=== PATIENT | male | born 1960 | race Caucasian/White ===

== ENCOUNTER → 2016-11-09 | Outpatient (CLI) | payer MEDICARE ==
[~2016-11-09] MED LIST: HYDR-2762 PO; VILA40TA PO
--- NOTE | 2016-11-09 23:53 | PAIN ---
DATE OF SERVICE: 11/09/2016 DIAGNOSES: Lumbar degenerative disk disease, lumbar spondylosis and lumbar spinal stenosis. HISTORY OF PRESENT ILLNESS: The patient is a 55-year-old male who returns for followup status post medication management with hydrocodone 7.5 mg. The patient is on this for extended periods of times, has done very well with this, has been very appropriate with the use of this medication, has had appropriate K-TRACS reporting as well as appropriate urinalysis to date. The patient reports he is doing well with medication again about 70-80% improvement with medications without any side effects. The patient reports still some aching and dull pain across the low back. We had performed some facet joints on him in the past, which he reports helped for a short period of time. We did do radiofrequency as well and he reported only minimal relief with that on the long-term for several months, but not the point where he wanted to repeat this. We discussed this once again, the patient is not interested in performing interventional techniques at this time as he is doing quite well with his hydrocodone and indeed has been on a very stable regimen and tolerated this well. The patient reports no new motor or sensory deficits, no new bowel or bladder incontinence or other complaints. PHYSICAL EXAMINATION: VITAL SIGNS: The patient's blood pressure 132/78, pulse 103, respirations 18, temperature 97.9 degrees Fahrenheit. Height 6 feet, weight is 242 pounds. GENERAL: The patient is awake, alert, oriented, appropriate, very pleasant demeanor. HEENT: Head shows normocephalic, atraumatic. Extraocular movements are intact and symmetrical. Oral cavity shows mucous membranes moist and pink. Dentition is intact. NECK: Shows anterior throat supple without palpable lymphadenopathy noted. Swallow reflex is symmetrical. CHEST: Shows normal on inspection. Breath sounds are clear to auscultation bilaterally. HEART: Shows S1 and S2 clear. No murmurs auscultated. ABDOMEN: Obese, soft, nontender, nondistended. No palpable organomegaly noted. No rebound or guarding demonstrated. BACK: Shows spine grossly midline. Lumbar paraspinous muscle shows some mild tenderness with palpation in the lower lumbar distribution only in the paraspinous muscles only diffusely without radiation or trigger points, no asymmetry noted with inspection. No tenderness over the spinous processes, sacrum or sacroiliac regions. The patient shows good rotation and motion of the lumbar spine with some minor tenderness with extension, but not with forward flexion 45 degrees right and left rotation at 10 degrees bilaterally. EXTREMITIES: Lower extremities show deep tendon reflexes at 1+ in the patellar and tendo calcaneus tendons are equal. Motor exam is strong with 5/5 dorsiflexion, extension, quadriceps and hamstring flexion, but is symmetrical. Options were discussed with the patient and the patient's old chart was reviewed as his current medication regimen updated. Current review of systems updated to date as well and we will refill the patient's hydrocodone for a 60 day supply. The patient was given instructions as well as side effects to be aware of with the medication and will follow up in approximately 2 months or sooner if necessary. JOSUÉ KEEN MD DR: PANFILO/han JOB#: [id number] / [id number]
== END | disposition home or self-care (01) ==
LOC: PNCL 11:08
PROVIDERS: ATTEND Anesthesiology
DX: M51.36 Other intervertebral disc degeneration, lumbar region (principal); M47.896 Other spondylosis, lumbar region; M48.06 Spinal stenosis, lumbar region
CPT/HCPCS: G0463

== ENCOUNTER → 2017-01-04 | Outpatient (CLI) | payer BC, MEDICARE ==
--- NOTE | 2017-01-05 03:38 | PAIN ---
DATE OF SERVICE: 01/04/2017 DIAGNOSES: Lumbar degenerative disk disease, lumbar spinal stenosis and spondylosis. HISTORY OF PRESENT ILLNESS: The patient is a 56-year-old male who returns for followup status post medication management with hydrocodone. The patient reports he has been doing fairly well with this. He is on a very stable regimen of about 80% improvement overall without significant side effects. The patient reports occasional constipation, but has not had any for now about a month. He is maintaining hydration. He is trying to increase his activity. He does have a pool at home and he has just opened this and does some of his own aquatic and pool therapies, which helps his back as well. He is looking forward to getting back into this. The patient reports no new motor or sensory deficits. No new bowel or bladder incontinence. No side effects with his medications. He has had appropriate K-TRACS reporting as well as appropriate urinalysis to date. He rates his pain as 6 on a scale of 10 ____, currently a 3 on a scale of 10 across the low back into the lower extremities. We discussed the interventional techniques with the patient again. He has had some of these in the past and does not have significant improvement and does well with his current medication regimen of up to 4 times a day, hydrocodone 7.5 mg, and again without any significant side effects. PHYSICAL EXAMINATION: VITAL SIGNS: The patient's blood pressure is 115/88, pulse 99, respirations are 18, temperature 97.6 degrees Fahrenheit, height is 6 feet 1 inch, and weight is 243 pounds. GENERAL: The patient is awake, alert, oriented, appropriate, very pleasant demeanor. HEENT: Head shows normocephalic and atraumatic. Extraocular movements are intact and symmetrical. Oral cavity shows mucous membranes moist and pink. Dentition is intact. NECK: Shows anterior throat supple without palpable lymphadenopathy noted. Swallow reflex is symmetrical. CHEST: Shows normal on inspection. Breath sounds clear to auscultation bilaterally. HEART: Shows S1 and S2 clear. No murmurs are auscultated. ABDOMEN: Obese, soft, nontender, and nondistended. No palpable organomegaly is noted. BACK: Shows spine grossly in the midline. Normal appearing thoracic kyphosis and lumbar lordotic curvature. Lumbar paraspinous musculature shows symmetrical on inspection, with palpation shows some [id number] tenderness, but only diffusely in the lower lumbar distribution bilaterally, again symmetrical with normal muscle girth. No tenderness over the sacrum and sacroiliac regions or the spinous processes in the lumbar distribution. The patient shows good rotation and motion of the lumbar spine, both laterally as well as extension and flexion without significant difficulty. EXTREMITIES: Lower extremities showed deep tendon reflexes at 1+ in the patellar and tendo calcaneus tendons are equal. Motor exam is strong with dorsiflexion, extension, quadriceps and hamstring flexion at about 4 on a scale of 5, but symmetrical and equal bilaterally. Peripheral pulses are 1+ posterior tibial and dorsalis pedis pulses. No peripheral edema is noted. No clubbing, no cyanosis. Lower extremities are warm and dry to touch, equal in color and appearance. The patient is walking with a slight limp, appears to favor his right lower extremity more than left, is using a cane in his right hand to ambulate. Options were discussed with the patient and the patient's old chart was reviewed as his current medication regimen and updated. Current review of systems updated today as well. We will refill the patient's hydrocodone at 7.5 mg up to 4 tablets a day. The patient was given instruction as well as side effects to be aware with medication and is also cautioned as to the potential side effects and treatment that may be necessary if these occur. The patient understands this and agrees. We will follow up in approximately 2 months as necessary or sooner if desired. The patient was given 2-month prescription with instructions, side effects to be aware of once again. JOSUÉ KEEN MD DR: PANFILO/han JOB#: [id number] / [id number]
== END | disposition home or self-care (01) ==
LOC: PNCL 11:24
PROVIDERS: ATTEND Anesthesiology
DX: M51.36 Other intervertebral disc degeneration, lumbar region (principal); M48.06 Spinal stenosis, lumbar region
CPT/HCPCS: G0463

== ENCOUNTER → 2017-03-02 | Outpatient (CLI) | payer BC, MEDICARE | END | disposition home or self-care (01) | LOC: PNCL 08:31 | PROVIDERS: ATTEND Anesthesiology | DX: M50.30 Other cervical disc degeneration, unspecified cervical region (principal); M47.892 Other spondylosis, cervical region | CPT/HCPCS: 99212 ==

== ENCOUNTER → 2017-08-15 | Outpatient (CLI) | payer BC | END | disposition home or self-care (01) | LOC: PNCL 10:58 | DX: M51.36 Other intervertebral disc degeneration, lumbar region (principal); M47.896 Other spondylosis, lumbar region; M48.061 Spinal stenosis, lumbar region without neurogenic claudication | CPT/HCPCS: G0463 ==

== ENCOUNTER → 2017-10-13 | Outpatient (CLI) | payer BC | END | disposition home or self-care (01) | LOC: PNCL 08:19 | DX: M51.36 Other intervertebral disc degeneration, lumbar region (principal); M48.061 Spinal stenosis, lumbar region without neurogenic claudication; M47.896 Other spondylosis, lumbar region | CPT/HCPCS: G0463 ==

== ENCOUNTER → 2017-12-07 | Outpatient (CLI) | payer BC | END | disposition home or self-care (01) | LOC: PNCL 14:30 | DX: M48.061 Spinal stenosis, lumbar region without neurogenic claudication (principal); M51.36 Other intervertebral disc degeneration, lumbar region; M47.896 Other spondylosis, lumbar region | CPT/HCPCS: G0463 ==

== ENCOUNTER → 2018-02-01 | Outpatient (CLI) | payer BC | END | disposition home or self-care (01) | LOC: PNCL 13:03 | DX: M51.36 Other intervertebral disc degeneration, lumbar region (principal); M47.896 Other spondylosis, lumbar region; M48.061 Spinal stenosis, lumbar region without neurogenic claudication | CPT/HCPCS: 99212 ==

== ENCOUNTER → 2018-03-28 | Outpatient (CLI) | payer BC | END | disposition home or self-care (01) | LOC: PNCL 12:47 | DX: M51.16 Intervertebral disc disorders with radiculopathy, lumbar region (principal); M48.061 Spinal stenosis, lumbar region without neurogenic claudication; M47.896 Other spondylosis, lumbar region; I10 Essential (primary) hypertension | CPT/HCPCS: G0463 ==

== ENCOUNTER → 2018-05-23 | Outpatient (CLI) | payer BC ==
[~2018-05-23] MED LIST changes: +ALPR1TAB2 PO; +BREX4TAB PO; +METF10007 PO; +METF500T16 PO
--- NOTE | 2018-05-23 22:40 | PAIN ---
DATE OF SERVICE: 05/23/2018 DIAGNOSES: Lumbar degenerative disk disease, lumbar spondylosis and lumbar spinal stenosis. HISTORY OF PRESENT ILLNESS: The patient is a 57-year-old male who returns for followup status post medication management with both hydrocodone 7.5 mg, doing very well. He has been on a very stable regimen with this medication. The patient reports no side effects, occasional constipation, but very rarely, maybe once a month. The patient reports otherwise doing quite well, still complains of pain in the low back and into bilateral posterior hips, worse with walking, standing, changing positions, better with sitting or lying down, does not awaken him from sleep, does not bother him much when he is sitting. The patient is just walking more than about 10-15-20 minutes. The patient reports as a 5 on a scale of 10 at its worst, 3 on average, 2 at its least and is a 2 today. The patient reports it is an aching pain, it is sometimes dull and sharp, occasionally radiating into the legs, but very rarely. The patient reports no new motor or sensory deficits, no bowel or bladder incontinence or other complaints. The patient has been on a stable regimen with this medication, has appropriate K-TRACS reporting as well as appropriate urinalysis to date. PHYSICAL EXAMINATION: VITAL SIGNS: The patient's blood pressure 119/73, pulse 90, respirations 18, temperature 98.5 degrees Fahrenheit, height 6 feet, weighs 228 pounds. GENERAL: The patient is awake, alert, oriented, appropriate, very pleasant demeanor. HEENT: Head is normocephalic, atraumatic. Extraocular movements intact and symmetrical. Oral cavity: Mucous membranes moist and pink. Dentition is intact. NECK: Shows anterior throat supple without palpable lymphadenopathy noted. Swallow reflex symmetrical. CHEST: Shows normal on inspection. Breath sounds clear to auscultation bilaterally. HEART: Shows S1, S2 clear. No murmurs auscultated. ABDOMEN: Soft, nontender, nondistended. No palpable organomegaly is noted, obese. BACK: Shows spine grossly in the midline. Slight exaggeration of thoracic kyphosis, some minor flattening of lumbar lordotic curvature. Lumbar paraspinous muscle shows symmetrical on inspection, with palpation shows some moderate tenderness but only diffusely in the low lumbar distribution without radiation bilaterally. The patient has good rotational motion of lumbar spine with greater than 10 degrees right and left as well as extension greater than 10 degrees, forward flexion 45 degrees without pain reported. EXTREMITIES: Lower extremities show deep tendon reflexes 1+ in the patellar and tendo-calcaneus tendons. Motor exam is strong with 5/5 dorsiflexion, extension, quadriceps and hamstring flexion approximately 4 on a scale of 5, but equal and symmetrical. Peripheral pulses are 1+ posterior tibia. No peripheral edema is noted bilaterally. Options were discussed with the patient. The patient's old chart was reviewed as his current medication regimen updated. Current review of systems updated today as well. We will refill the patient's hydrocodone at 7.5 mg for a 2-month period as he has been very stable on this regimen again with appropriate K-TRACS reporting, appropriate urinalysis to date. The patient will follow up in approximately 2 months, was counseled as to activity level as well as medication regimen and side effects to be aware of. JOSUÉ KEEN MD DR: PANFILO/han JOB#: [id number] / [id number]
== END | disposition home or self-care (01) ==
LOC: PNCL 12:52
PROVIDERS: ATTEND Anesthesiology
DX: M51.36 Other intervertebral disc degeneration, lumbar region (principal); M47.896 Other spondylosis, lumbar region; M48.061 Spinal stenosis, lumbar region without neurogenic claudication
CPT/HCPCS: G0463

== ENCOUNTER → 2018-07-18 | Outpatient (CLI) | payer BC ==
[~2018-07-18] MED LIST changes: -HYDR-2762 PO; +HYDR-2765 PO
--- NOTE | 2018-07-18 21:49 | PAIN ---
DATE OF SERVICE: 07/18/2018 PROGRESS NOTE FOR PAIN CLINIC DIAGNOSES: Lumbar degenerative disk disease, lumbar spondylosis and lumbar spinal stenosis. HISTORY OF PRESENT ILLNESS: The patient is a 57-year-old male who returns for followup status post medication management with hydrocodone 7.5 mg, doing well with this up to 4 a day. The patient reports it has been taking care of the pain to a moderate extent about 75% overall. The patient reports he still has significant pain in the low back, which has been worse with some cold weather we had recently, but otherwise doing fairly well getting through his daily activities with pretty good ease and comfort, able to increase distance walking, doing household activities as well as recreational activities and traveling in and out of the car without significant difficulty. The patient reports his pain is 6 on a scale of 10 at its worst, for an average and 3 at its least and is a 4 today. The patient reports it is aching and constant in the low back, worse with standing, walking, changing positions or ambulating for more than 20-30 minutes. Reports it does not awaken him from sleep at night, better with sitting or lying down, also some pain with getting out the chair, but only temporarily. Once he is up and around and moving, pain seems to subside. The patient reports no new motor or sensory deficits, no new bowel or bladder incontinence. No significant side effects with his medications. PHYSICAL EXAMINATION: VITAL SIGNS: The patient's blood pressure is 123/78, pulse 101, respirations are 18, temperature 98.0 degrees Fahrenheit. Height is 6 feet, weight is 233 pounds. GENERAL: The patient is awake, alert, oriented, appropriate, very pleasant demeanor. HEENT: Head is normocephalic, atraumatic. Extraocular movements are intact and symmetrical. Oral cavity: Mucous membranes moist and pink. Dentition is intact. NECK: Shows anterior throat supple without palpable lymphadenopathy noted. Swallow reflex symmetrical. CHEST: Shows normal on inspection. Breath sounds clear to auscultation bilaterally. HEART: Shows S1, S2 clear. No murmurs auscultated. ABDOMEN: Soft, nontender, nondistended. No palpable organomegaly is noted. No rebound or guarding demonstrated. BACK: The patient's back shows spine grossly in the midline. Normal appearing thoracic kyphosis and minor flattening of lumbar lordotic curvature. Lumbar paraspinous muscle shows symmetrical on inspection, on palpation shows some minor tenderness, but only diffusely with palpation. No atrophy or hypertrophy. The patient has good rotational motion of the lumbar spine with extension, flexion as well as lateral rotation without significant tenderness. EXTREMITIES: The patient's lower extremities show deep tendon reflexes at 1+ in the patellar and tendo calcaneus tendons are equal. Motor exam is strong with 5/5 dorsiflexion, extension, quadriceps and hamstring flexion and symmetrical. Peripheral pulses are 1+ posterior tibia. No peripheral edema is noted bilaterally. Options were discussed with the patient. The patient's old chart was reviewed, as his current review of systems reviewed and updated and we will refill the patient's hydrocodone 7.5 mg for 2-month period. The patient had appropriate K-TRACS reporting as well as appropriate urinalysis to date. The patient was given instruction as well as side effects to be aware of with the medication and will follow up in approximately 2 months or sooner as necessary. JOSUÉ KEEN MD DR: PANFILO/han JOB#: [id number] / [id number]
== END | disposition home or self-care (01) ==
LOC: PNCL 12:54
PROVIDERS: ATTEND Anesthesiology
DX: M51.36 Other intervertebral disc degeneration, lumbar region (principal); M47.816 Spondylosis without myelopathy or radiculopathy, lumbar region; M48.061 Spinal stenosis, lumbar region without neurogenic claudication
CPT/HCPCS: G0463

== ENCOUNTER → 2018-09-12 | Outpatient (CLI) | payer BC ==
--- NOTE | 2018-09-12 13:47 | PAIN ---
DATE OF SERVICE: 09/12/2018 DIAGNOSES: Lumbar degenerative disk disease, lumbar spondylosis, lumbar spinal stenosis. HISTORY OF PRESENT ILLNESS: The patient is a 57-year-old male who returns for followup status post medication management with hydrocodone 7.5 mg. The patient reports he was doing quite well with this very stable regimen with good pain relief, about 80% improvement overall in the low back and bilateral lower extremity pain. The patient reports he is getting around well with the medication, does not have any excessive sedation, constipation, nausea or memory issues. The patient reports the pain is across the low back, into the posterior hips bilaterally, it is aching. The pain is dull at times, but becomes constant with walking and standing, better with sitting or lying down, does not awaken him from sleep at night. The patient reports no new motor or sensory deficits, no new bowel or bladder incontinence or other complaints. Rates his pain as 6 on a scale 10 at its worst, 4 on average and 2 at its least and is a 4 today. PHYSICAL EXAMINATION: VITAL SIGNS: The patient's blood pressure is 136/78, pulse 93, respirations 16, temperature 98.0 degrees Fahrenheit, height 6 feet 1 inch, weight is 238 pounds. GENERAL: The patient is awake, alert, oriented, appropriate, very pleasant demeanor. HEENT: Head shows normocephalic, atraumatic. Extraocular movements intact and symmetrical. Oral cavity: Mucous membranes moist and pink. Dentition is intact. NECK: Shows anterior throat supple without palpable lymphadenopathy noted. Swallow reflex symmetrical. CHEST: Shows normal on inspection. Breath sounds clear to auscultation bilaterally. HEART: Shows S1, S2 clear. No murmurs auscultated. ABDOMEN: Obese, soft, nontender, nondistended. No palpable organomegaly is noted. No rebound or guarding demonstrated. BACK: Shows spine grossly in the midline, normal-appearing cervical lordotic curvature and thoracic kyphosis, mild flattening of lumbar lordotic curvature. Lumbar paraspinous muscle shows symmetrical on inspection. On palpation shows some moderate tenderness but only diffusely in the low lumbar distribution with palpation without radiation, without asymmetry, without trigger points. No tenderness over the spinous processes, sacrum or sacroiliac regions. EXTREMITIES: The patient's lower extremities show deep tendon reflexes 1+ in the patellar and tendo-calcaneus tendons. Motor exam is strong with 5/5 dorsiflexion, extension, quadriceps and hamstring flexion equal. Peripheral pulses are 1+ posterior tibia. No peripheral edema is noted bilaterally. Options were discussed with the patient. The patient's old chart was reviewed as his current medication regimen updated. Current review of systems updated today as well. We will refill the patient's hydrocodone at 7.5 mg for a 2-month supply. The patient was given instruction as well as side effects to be aware of. He has had appropriate K-TRACS reporting as well as appropriate urinalysis to date and will have a urinalysis drawn today as a routine screening. Also, renewed narcotic contract with the patient. The patient was given instructions, side effects to be aware of with the medication. We will follow up in approximately 2 months or sooner as necessary. JOSUÉ KEEN MD DR: PANFILO/han JOB#: [id number] / [id number]
== END | disposition home or self-care (01) ==
LOC: PNCL 12:51
PROVIDERS: ATTEND Anesthesiology
DX: M51.36 Other intervertebral disc degeneration, lumbar region (principal); M48.061 Spinal stenosis, lumbar region without neurogenic claudication; M47.816 Spondylosis without myelopathy or radiculopathy, lumbar region
CPT/HCPCS: G0463

== ENCOUNTER → 2018-11-07 | Outpatient (CLI) | payer BC ==
--- NOTE | 2018-11-07 22:17 | PAIN ---
DATE OF SERVICE: 11/07/2018 PROGRESS NOTE FOR PAIN CLINIC DIAGNOSIS: Lumbar degenerative disk disease, lumbar spondylosis and lumbar spinal stenosis. HISTORY OF PRESENT ILLNESS: The patient is a 57-year-old male who returns for followup status post medication management with hydrocodone 7.5 mg. The patient reports he is doing very well. He has been on a very stable regimen. He still has some pain in his low back with his main complaint in the low back itself. He rates as a 6 on a scale of 10 at its worst, 3 on average, 2 at its least and is a 3 today. The patient reports it is aching and becoming constant, but worse with activity, standing, walking and changing positions, better with sitting or lying down, does not awaken him from sleep at night, sleeps about 8 hours at a time, better with sitting as well but again when he is up walking. Taking the medications does control the pain he reports by about 75% to 80% without significant side effects. The patient reports occasional constipation, but only very rarely and that some days he will have diarrhea without any change in his medications or diet as well. The patient reports no new motor or sensory deficits, no new bowel or bladder incontinence or other complaints. PHYSICAL EXAMINATION: VITAL SIGNS: The patient's blood pressure 131/79, pulse 93, respirations 18, temperature 98.2 degrees Fahrenheit, height 6 feet 1 inch, weight is 248 pounds. GENERAL: The patient is awake, alert, oriented, appropriate, very pleasant demeanor. HEENT: Head is normocephalic, atraumatic. Extraocular movements are intact and symmetrical. Oral cavity: Mucous membranes are moist and pink. Dentition is intact. NECK: Shows anterior throat supple without palpable lymphadenopathy noted. Swallow reflex is symmetrical. CHEST: Shows normal on inspection. Breath sounds are clear to auscultation bilaterally. HEART: Shows S1, S2 clear. No murmurs auscultated. ABDOMEN: Soft, obese, nontender, nondistended. No palpable organomegaly is noted. No rebound or guarding demonstrated. BACK: Shows spine grossly in the midline. Normal appearing thoracic kyphosis and minor flattening of lumbar lordotic curvature. Lumbar paraspinous muscle shows symmetrical on inspection, on palpation shows some moderate tenderness diffusely, but only diffusely without radiation. The patient has good rotational motion of lumbar spine, both laterally as well as extension and flexion without difficulty. EXTREMITIES: Lower extremities show deep tendon reflexes at 1+ in the patellar and tendo calcaneus tendons are equal. Motor exam is strong with 5/5 dorsiflexion, extension, quadriceps and hamstring flexion and symmetrical. Peripheral pulses are 1+ posterior tibia. No peripheral edema is noted. Options were discussed with the patient. The patient's old chart was reviewed as his current medication regimen updated. Current review of systems updated today as well. We will refill the patient's hydrocodone 7.5 mg up to 4 times daily. The patient has had appropriate K-TRACS reporting as well as appropriate urinalysis to date and he has been on a very stable regimen with the medications. We will refill this with instructions, side effects to be aware of discussed with each of the medications. The patient will return to the clinic in approximately 2 months or sooner as necessary schedule. JOSUÉ KEEN MD DR: PANFILO/han JOB#: [id number] / [id number]
== END | disposition home or self-care (01) ==
LOC: PNCL 13:04
PROVIDERS: ATTEND Anesthesiology
DX: M48.061 Spinal stenosis, lumbar region without neurogenic claudication (principal); M47.816 Spondylosis without myelopathy or radiculopathy, lumbar region; M51.36 Other intervertebral disc degeneration, lumbar region
CPT/HCPCS: G0463

== ENCOUNTER → 2019-01-02 | Outpatient (CLI) | payer BC ==
--- NOTE | 2019-01-03 05:31 | PAIN ---
DATE OF SERVICE: 01/02/2019 PROGRESS NOTE FOR PAIN CLINIC DIAGNOSES: Lumbar degenerative disk disease, lumbar spondylosis and lumbar spinal stenosis. HISTORY OF PRESENT ILLNESS: The patient is 58-year-old male who returns for followup status post medication management with hydrocodone. The patient reports he has been doing very well with this without significant side effects, has been on very stable regimen and continues to do so. The patient reports he took a fall about a week ago, which he fell off of a stool when he was fixing a ceiling fan but other than that done quite well. The pain was increased a bit at that time. He fell on his upper back but now doing much better. The patient reports still pain in the low back and into the lower extremities, still walking with a cane, which is better with sitting or lying down, does not awaken him from sleep and usually feels pretty good when he is off his feet. When he is on his feet after about 15-20 minutes, the pain has been increasing, is aching, dull pain across the low back, into the left greater than right lower extremity but with very well controlled about 75%-80% with the medications as previously. The patient reports no side effects and no new motor or sensory deficits, rates his pain as 6 on a scale 10 at its worst over the past week, 4 at its average, 3 at its least and is a 4 today. The patient reports no new changes or other deficits. PHYSICAL EXAMINATION: VITAL SIGNS: The patient's blood pressure 129/83, pulse of 111, respirations 18 and temperature 98.2 degrees Fahrenheit. Height 6 feet 1 inch and weight is 239 pounds. GENERAL: The patient is awake, alert, oriented, appropriate and very pleasant demeanor. HEENT: Head is normocephalic and atraumatic. Extraocular movements are intact and symmetrical. Oral cavity, mucous membranes are moist and pink. Dentition is intact. NECK: Shows anterior throat supple without palpable lymphadenopathy noted. Swallow reflex is symmetrical. CHEST: Shows normal with inspection. Breath sounds clear to auscultation bilaterally. HEART: Shows S1 and S2 clear. No murmurs auscultated. ABDOMEN: Soft, nontender and nondistended. No palpable organomegaly is noted. No rebound or guarding demonstrated. BACK: Shows spine grossly in the midline. Normal-appearing thoracic kyphosis and some slight flattening of lumbar lordotic curvature. Lumbar paraspinous musculature shows symmetrical on inspection with palpation shows some mild tenderness diffusely throughout the upper, middle and lower distribution of the paraspinous muscles bilaterally but only diffusely. The patient has good rotational motion of the lumbar spine, both laterally as well as extension and flexion without significant pain reported. EXTREMITIES: The patient's lower extremities show deep tendon reflexes at 1+ in the patellar and tendo-calcaneus tendons are equal. Motor exam is strong with 5/5 dorsiflexion, extension, quadriceps and hamstring flexion and symmetrical. Peripheral pulses are 1+ posterior tibia. No peripheral edema is noted bilaterally. The patient is walking with a cane in his right hand does have a significant limp, appears to favor the left lower extremity greater than the right with ambulation. Options were discussed with the patient. The patient's old chart was reviewed as well as his current medication regimen updated. Current review of systems updated today as well. We will refill the patient's hydrocodone with a 2-month prescription. The patient has had appropriate K-TRACS reporting as well as appropriate urinalysis to date and the patient was given instruction as well as side effects to be aware of with the medication. The patient will follow up in approximately 2 months or sooner as necessary. JOSUÉ KEEN MD DR: PANFILO/han JOB#: [id number] / [id number]
== END | disposition home or self-care (01) ==
LOC: PNCL 12:53
PROVIDERS: ATTEND Anesthesiology
DX: M51.36 Other intervertebral disc degeneration, lumbar region (principal); M47.816 Spondylosis without myelopathy or radiculopathy, lumbar region; M48.061 Spinal stenosis, lumbar region without neurogenic claudication
CPT/HCPCS: G0463

== ENCOUNTER → 2019-02-27 | Outpatient (CLI) | payer BC ==
--- NOTE | 2019-02-27 23:31 | PAIN ---
DATE OF SERVICE: 02/27/2019 PROGRESS NOTE FOR PAIN CLINIC DIAGNOSES: Lumbar degenerative disk disease, lumbar spondylosis, and lumbar spinal stenosis. HISTORY OF PRESENT ILLNESS: The patient a 58-year-old male who returns for followup status post medication management with hydrocodone 7.5 mg. The patient has been on very stable regimen. The patient has been doing very well with about 78% improvement overall, the pain in his low back. The patient reports it is a 5 on a scale of 10 at its worst in the past week, 3 on average, 2 at its least, and is a 3 today. The patient reports it is aching and dull, constant with activity, better with sitting, lying down, and does not awaken him from sleep at night, better with lying and sitting. When he is mowing the yard, also he has some increased pain with the low back on a riding mower, but otherwise doing very well. The patient reports no side effects with medications. Has been on a very stable regimen. No new changes, no bowel or bladder incontinence or other complaints. He has been increasing distance walking and doing household activities as well with greater ease and comfort. PHYSICAL EXAMINATION: VITAL SIGNS: The patient's blood pressure is 138/85, pulse 96, respirations are 18, temperature is 98.3 degrees Fahrenheit, height 6 feet 1 inch, weight is 242 pounds. GENERAL: The patient is awake, alert, oriented, and appropriate, very pleasant demeanor. HEENT: Head is normocephalic, atraumatic. Extraocular movements are intact and symmetrical. Oral cavity, mucous membranes moist and pink. Dentition is intact. NECK: Shows anterior throat supple without palpable lymphadenopathy noted. Swallow reflex is symmetrical. CHEST: Shows normal with inspection. Breath sounds are clear to auscultation bilaterally. HEART: Shows S1, S2 clear. No murmurs auscultated. ABDOMEN: Soft, nontender, nondistended. No palpable organomegaly is noted. No rebound or guarding demonstrated. BACK: Shows spine grossly in the midline. Normal appearing thoracic kyphosis and some minor flattening of lumbar lordotic curvature. Lumbar paraspinous musculature shows symmetrical on inspection. With palpation, some moderate tenderness diffusely bilaterally, but only diffusely without significant radiation. The patient has good rotation of motion of lumbar spine, both laterally as well as extension and flexion without significant difficulty. EXTREMITIES: Lower extremity showed deep tendon reflexes 1+ in the patellar and tendo-calcaneus tendons. Motor exam is strong with 5/5 dorsiflexion and extension. Options were discussed with the patient. The patient's old chart was reviewed, as his current medications regimen are updated, and current review of systems is updated today as well. We will proceed with refilling of the patient's medications for two months, hydrocodone 7.5 mg. The patient was given instructions as well as side effects to be aware with the medication. The patient has had appropriate K-TRACS reporting as well as appropriate urinalysis to date. We will refill for 2 month. Again, the patient will return to the clinic in approximately 2 months or sooner as necessary. JOSUÉ KEEN MD DR: PANFILO/han JOB#: [id number] / [id number]
== END | disposition home or self-care (01) ==
LOC: PNCL 12:51
PROVIDERS: ATTEND Anesthesiology
DX: M51.36 Other intervertebral disc degeneration, lumbar region (principal); M47.816 Spondylosis without myelopathy or radiculopathy, lumbar region; M48.061 Spinal stenosis, lumbar region without neurogenic claudication
CPT/HCPCS: G0463

== ENCOUNTER → 2019-04-25 | Outpatient (CLI) | payer BC ==
--- NOTE | 2019-04-26 00:17 | PAIN ---
DATE OF SERVICE: 04/25/2019 PROGRESS NOTE FOR PAIN CLINIC DIAGNOSES: Lumbar degenerative disk disease with lumbar spondylosis and lumbar spinal stenosis. HISTORY OF PRESENT ILLNESS: The patient is a 58-year-old male who returns for followup status post medication management with hydrocodone. The patient has done very well with this with about 80% improvement overall without side effects. The patient reports further pain in his low back. The patient reports that his main complaint today is left ankle. He has had surgery on this with reconstruction and instrumentation many years ago, but over the past 3 weeks or so, the pain has been returning in his left ankle without any particular injury or accident that he is aware of, but getting worse with weightbearing. The patient is in a wheelchair today because he is not wanting to put weight on his left ankle. The patient reports no new motor or sensory deficits, otherwise. No new changes, no bowel or bladder incontinence. Again, no side effects with medication. The patient rates his pain as a 5 on a scale of 10 at its worst in the past week due to his left ankle, 3 on average, and a 2 at its least and is a 2 regarding his back today. The patient reports it does not awaken him from sleep at night, nor does his ankle. The pain in the back is aching and constant with activity and walking, but again, well controlled with medications. PHYSICAL EXAMINATION: VITAL SIGNS: The patient's blood pressure is 134/89, pulse 96, respirations are 18, temperature is 98.6 degrees Fahrenheit, height is 6 feet and weight is 244 pounds. GENERAL: The patient is awake, alert, oriented, appropriate, very pleasant demeanor. HEENT: Head shows normocephalic, atraumatic. Extraocular movements are intact and symmetrical. Oral cavity: Mucous membranes moist and pink. Dentition is intact. NECK: Shows anterior throat supple without palpable lymphadenopathy noted. Swallow reflex symmetrical. CHEST: Shows normal on inspection. Breath sounds are clear to auscultation bilaterally. HEART: Shows S1, S2 clear. No murmurs auscultated. ABDOMEN: Soft, nontender and nondistended. No palpable organomegaly is noted. BACK: Shows spine grossly in the midline. Lumbar paraspinous muscle shows symmetrical on inspection. With palpation, some moderate tenderness diffusely throughout the upper, middle and lower distribution of paraspinous muscles bilaterally without radiation, without atrophy or hypertrophy. The patient shows good rotational motion of lumbar spine with some minor tenderness with extension, but not with forward flexion, right or left lateral rotation. EXTREMITIES: Lower extremities show deep tendon reflexes 1+ in the patellar and tendo-calcaneus tendons. Motor exam is 5/5 with dorsiflexion, extension, quadriceps and hamstring flexion and symmetrical with tenderness only with palpation over the medial malleolus and the lateral malleolus on the left ankle. No erythema is noted. No breakdown. There are well-healed surgical scars noted in the left ankle, tender with palpation, but again, very good with strength 5/5 dorsiflexion and extension. Eversion and inversion of the ankle was performed while resting without difficulty. The patient reports pain only essentially with weightbearing on the left ankle. Options were discussed with the patient. The patient's old chart was reviewed as his current medication regimen updated. Current review of systems updated today as well. We will refill the patient's hydrocodone for a 2-month period. The patient has had appropriate K-TRACS reporting as well as appropriate urinalysis to date. Also, we will add Voltaren gel for the left ankle to see if this may help to some extent. He was encouraged to consider evaluation with his orthopedic surgeon if the pain continues. The patient understands and agrees and will follow up in approximately 2 months or sooner as necessary with our office. JOSUÉ KEEN MD DR: PANFILO/han JOB#: [id number] / [id number]
== END | disposition home or self-care (01) ==
LOC: PNCL 12:40
PROVIDERS: ATTEND Anesthesiology
DX: M51.36 Other intervertebral disc degeneration, lumbar region (principal); M48.061 Spinal stenosis, lumbar region without neurogenic claudication; M47.816 Spondylosis without myelopathy or radiculopathy, lumbar region
CPT/HCPCS: G0463

== ENCOUNTER → 2019-06-20 | Outpatient (CLI) | payer BC ==
--- NOTE | 2019-06-20 17:36 | PAIN ---
DATE OF SERVICE: 06/20/2019 PROGRESS NOTE FOR PAIN CLINIC DIAGNOSES: Lumbar degenerative disk disease with lumbar spondylosis and lumbar spinal stenosis. HISTORY OF PRESENT ILLNESS: The patient is a 58-year-old male who returns for followup status post medication management with hydrocodone 7.5 mg. The patient reports he is doing very well with this, has been on a very stable regimen with about 75% improvement overall in his low back pain. The patient reports he is feeling more weak with his legs and with walking lately, but nothing new. He is using a cane, which he usually has with him in his right hand, using a wheelchair or a motorized scooter when he can at certain stores and locations when they are available. The patient reports he feels his legs and back are getting weaker. We discussed this on his last visit as well and we discussed it again today that he is getting deconditioning, some significant amounts with the lack of activity and exercise that he is able to undergo. The patient reports that he still gets around as he needs to. We had offered some physical therapy in the past and I offered that again today. He would like to try to do this on his own first. The patient reports he is doing well with the medication; however, no side effects. The patient reports the pain is a 5 on a scale of 10 at its worst, 3 on average, 2 at its least and is a 3 today. The patient reports it is aching and dull, constant in the low back itself and also on the left leg. He has not followed up on the left ankle pain as we had asked him to last time and encouraged him to do that again at this time. The patient reports it does not awaken him from sleep at night, better with lying down or sitting, worse with putting weight on his lower extremities and with walking and standing. PHYSICAL EXAMINATION: VITAL SIGNS: The patient's blood pressure 147/96, pulse 81, respirations are 18, temperature is 98.5 degrees Fahrenheit, height is 6 feet, and weight is 245 pounds. GENERAL: The patient is awake, alert, oriented, appropriate, very pleasant demeanor. HEENT: Shows normocephalic, atraumatic. Extraocular movements are intact and symmetrical. Oral cavity shows mucous membranes moist and pink. Dentition is intact. NECK: Shows anterior throat supple. CHEST: Shows normal on inspection. Breath sounds clear to auscultation bilaterally. HEART: Shows S1, S2 clear. No murmurs auscultated. ABDOMEN: Soft, nontender, nondistended. No palpable organomegaly is noted. No rebound or guarding demonstrated. BACK: The patient's back shows spine grossly in midline, slight exaggerated thoracic kyphosis, minor flattening of lumbar lordotic curvature. Lumbar paraspinous muscle shows symmetrical on inspection, on palpation shows some moderate tenderness diffusely bilaterally going diffusely without significant radiation. The patient has good rotational motion of lumbar spine, both laterally as well as extension and flexion without difficulty. EXTREMITIES: Lower extremities show deep tendon reflexes at 1+ in the patellar and tendo calcaneus tendons. Motor exam is approximately 4 on a scale of 5 on the left ankle and quadriceps and hamstring flexion, but also 4/5 on the right and is symmetrical. Peripheral pulses are 1+ posterior tibia. No peripheral edema is noted bilaterally. Options were discussed with the patient. The patient's old chart was reviewed as his current medication regimen updated. Current review of systems updated today as well. We will again encourage the patient to consider physical therapy. He is refusing at this time and would like to do this on his own at home and try to get into the some exercise routine. We discussed that we could actually try and arrange home visits with physical therapy as well. The patient still would like to try it on his own first. We discussed water therapy as well. He would like to again wait and try it on his own. We encouraged him to decrease his inactivity and increase walking and stretching daily, showed him some stretches to do as well and again the patient will take this into consideration. The patient was given refill prescriptions. He has had appropriate K-TRACS reporting as well as appropriate urinalysis to date for a 2-month prescription with hydrocodone 7.5 mg, instructions, side effects to be aware of discussed with the medication. The patient will follow up in approximately 2 months or sooner as necessary. JOSUÉ KEEN MD DR: PANFILO/han JOB#: [id number] / [id number]
== END | disposition home or self-care (01) ==
LOC: PNCL 12:44
PROVIDERS: ATTEND Anesthesiology
DX: M51.36 Other intervertebral disc degeneration, lumbar region (principal); M48.061 Spinal stenosis, lumbar region without neurogenic claudication; M47.816 Spondylosis without myelopathy or radiculopathy, lumbar region
CPT/HCPCS: G0463

== ENCOUNTER → 2019-08-15 | Outpatient (CLI) | payer BC ==
[~2019-08-15] MED LIST changes: +ATOR10TA60 PO
--- NOTE | 2019-08-15 14:06 | PAIN ---
DATE OF SERVICE: 08/15/2019 PROGRESS NOTE FOR PAIN CLINIC DIAGNOSES: Lumbar degenerative disk disease, lumbar spinal stenosis and lumbar spondylosis. HISTORY OF PRESENT ILLNESS: The patient is a 58-year-old male who returns for followup status post medication management with both hydrocodone and Voltaren gel. The patient reports he is doing very well with the medication, has been about a 75% improvement overall without side effects, occasional constipation, but only very rarely. The patient controls this generally with unop-svg-[id number] laxatives or increased hydration without difficulty. The patient reports no new motor or sensory deficits or other changes. He reports pain is still in the low back bilaterally as well as some pain in the left foot. The patient reports the pain is a 6 on a scale of 10 at its worst over the past week, 3 on average, 3 at its least and is a 3 today, which is aching, sometimes constant, worse with walking and standing. Again, the patient has postsurgical changes in his left ankle and foot, which causes some significant pain with walking as well. The patient is using a cane in his left hand. PHYSICAL EXAMINATION: VITAL SIGNS: The patient's blood pressure is 126/81, pulse 101, respirations 16, temperature is 98.1 degrees Fahrenheit, weight is 236 pounds. GENERAL: The patient is awake, alert, oriented, appropriate, very pleasant demeanor. HEENT: Head shows normocephalic, atraumatic. Extraocular movements are intact and symmetrical. Oral cavity shows mucous membranes moist and pink. Dentition is intact. NECK: Shows anterior throat supple without palpable lymphadenopathy noted. Swallow reflex symmetrical. CHEST: Shows normal on inspection. Breath sounds clear bilaterally. HEART: Shows S1, S2 clear. No murmurs auscultated. ABDOMEN: Soft, nontender, nondistended. No palpable organomegaly is noted. No rebound or guarding demonstrated. BACK: Shows spine grossly in the midline. Normal-appearing thoracic kyphosis and some minor flattening of lumbar lordotic curvature. Lumbar paraspinous muscle shows symmetrical with inspection, with palpation shows some mild tenderness diffusely throughout the upper, middle and lower distribution of paraspinous muscles bilaterally without radiation. The patient has good rotational motion of lumbar spine, both laterally as well as extension and flexion without significant difficulty. EXTREMITIES: Lower extremities show deep tendon reflexes at 1+ in the patellar and tendo-calcaneus tendons. Motor exam is approximately 3-4 on a scale of 5 in dorsiflexion, extension on the left ankle and 5/5 on the right, quadriceps and hamstring flexion 5/5 and equal bilaterally. Peripheral pulses are 1+ in posterior tibia. No peripheral edema is noted. PLAN: Options were discussed with the patient. The patient's old chart was reviewed as his current medication regimen updated. Current review of systems updated today as well. We will refill the patient's medication, hydrocodone 7.5 mg with instructions, side effects to be aware of. The patient has had appropriate K-TRACS reporting as well as appropriate urinalysis to date and we will refill this for a 2-month period. The patient was given instruction as well as side effects to be aware of with the medications and will follow up in approximately 2 months or sooner as necessary. JOSUÉ KEEN MD DR: PANFILO/han JOB#: [id number] / [id number]
== END | disposition home or self-care (01) ==
LOC: PNCL 12:51
PROVIDERS: ATTEND Anesthesiology
DX: M51.36 Other intervertebral disc degeneration, lumbar region (principal); M47.816 Spondylosis without myelopathy or radiculopathy, lumbar region; M48.061 Spinal stenosis, lumbar region without neurogenic claudication
CPT/HCPCS: G0463

== ENCOUNTER → 2019-10-11 | Outpatient (CLI) | payer BC ==
--- NOTE | 2019-10-11 09:07 | PAIN ---
DATE OF SERVICE: 10/11/2019 PROGRESS NOTE FOR PAIN CLINIC DIAGNOSES: Lumbar degenerative disk disease, lumbar spinal stenosis and lumbar spondylosis. HISTORY OF PRESENT ILLNESS: The patient is a 58-year-old male who returns for followup status post medication management with hydrocodone. The patient reports he is doing very well with this, has been on a very stable regimen, about 75-80% improvement overall with the medications and without side effects. The patient reports he has become more sedentary with some colder weather we have had recently and noticed that he would like to try some physical therapy and has the exercises to do at home. He has not just done them yet. The patient reports no new motor or sensory deficits, still significant pain in the low back, primarily into the bilateral lower extremities, worse with activity, standing, walking, changing positions, better with sitting or lying down, but does awaken him from sleep occasionally, but not every night. The patient reports it is a 6 on a scale of 10 at its worst over the past week, 3 on average, 3 at its least and is a 3 today. The patient reports it is much better with sitting or lying down. Describes the pain as becoming more aching and tight in the low back and constant with activity, but better with rest. The patient reports no new motor or sensory deficits, no new bowel or bladder incontinence, still using a cane to ambulate. Has it with him today as well. Reports the pain is worse while walking. PHYSICAL EXAMINATION: VITAL SIGNS: The patient's blood pressure 134/81, pulse 105, respirations are 16, temperature is 99.1 degrees Fahrenheit, height and weight were deferred as the patient does not feel like getting checked today. GENERAL: The patient is awake, alert, oriented, appropriate, very pleasant demeanor. HEENT: Head shows normocephalic, atraumatic. Extraocular movements are intact and symmetrical. Oral cavity: Mucous membranes moist and pink. Dentition is intact. NECK: Shows anterior throat supple without palpable lymphadenopathy noted. Swallow reflex symmetrical. CHEST: Shows normal on inspection. Breath sounds clear bilaterally. HEART: Shows S1, S2 clear. ABDOMEN: Obese, soft, nontender, nondistended. BACK: Shows spine grossly in the midline. Normal appearing thoracic kyphosis and lumbar lordotic curvature. Lumbar paraspinous muscle shows symmetrical on inspection and palpation shows some diffuse tenderness throughout the upper, middle and lower distribution of paraspinous muscles bilaterally, but only diffusely without significant radiation. The patient does show good rotational motion of lumbar spine, both laterally as well as extension and flexion without significant difficulty without increased pain, no tenderness over the sacrum and sacroiliac regions or the spinous processes. EXTREMITIES: The patient's lower extremities show deep tendon reflexes 1+ patellar and tendo calcaneus tendons. Motor exam is approximately 4 on a scale of 5, but symmetrical with dorsiflexion, extension, quadriceps and hamstring flexion. No peripheral edema is noted. Peripheral pulses are 1+ bilaterally. PLAN: Options were discussed with the patient. The patient's old chart was reviewed as his current medication regimen updated. Current review of systems updated today as well. We will refill the patient's medications. He has had appropriate K-TRACS reporting as well as appropriate urinalysis to date. We will make this a 2-month prescription for hydrocodone 7.5 mg. The patient will return to the clinic in approximately 2 months or sooner as necessary. JOSUÉ KEEN MD DR: PANFILO/han JOB#: [id number] / [id number]
== END | disposition home or self-care (01) ==
LOC: PNCL 08:15
PROVIDERS: ATTEND Anesthesiology
DX: M51.36 Other intervertebral disc degeneration, lumbar region (principal); M47.816 Spondylosis without myelopathy or radiculopathy, lumbar region; M48.061 Spinal stenosis, lumbar region without neurogenic claudication
CPT/HCPCS: G0463

== ENCOUNTER → 2020-01-03 | Outpatient (CLI) | payer BC ==
--- NOTE | 2020-01-03 12:33 | PAIN ---
DATE OF SERVICE: 01/03/2020 PROGRESS NOTE FOR PAIN CLINIC DIAGNOSES: Lumbar degenerative disk disease, lumbar spinal stenosis and lumbar spondylosis. HISTORY OF PRESENT ILLNESS: The patient is a 59-year-old male who returns for followup status post medication management with hydrocodone. The patient reports he did very well, has been on a very stable regimen for extended period of time now with the 7.5 mg hydrocodone. The patient reports no side effects with the medication. He is tolerating it well. No other side effects of itching, nausea, constipation or dysphoria. No memory issues. The patient reports he is becoming less and less mobile at home however and he does have significant pain in the low back, and he also has some disuse syndrome and has not been exercising, stretching, especially lately as he has been trying to isolate himself from family secondary to coronavirus concerns and only making limited trips to stores and appointments, etc. The patient reports that his pain is a 6 on a scale of 10 at its worst over the past week, 4 on average, 3 at its least and is a 4 today. The patient reports it is aching and dull, constant in the low back itself, but well tolerated with the medication. The patient reports about 70% improvement with the medication overall, but without side effects as noted. The patient reports he has been sleeping fairly well, occasionally wakes up, but not secondary to the pain at night and at most nights, he does sleep fairly well, better with sitting or lying down, again worse with walking, standing and weightbearing. The patient is using a wheelchair on his presentation today. PHYSICAL EXAMINATION: VITAL SIGNS: The patient's blood pressure 111/63, pulse 63, respirations 20, temperature 98.0 degrees Fahrenheit, height and weight deferred as the patient did not want to get up on the scale because he felt unsteady on his feet. HEENT: Shows normocephalic, atraumatic. Extraocular movements are intact and symmetrical. Oral cavity: Mucous membranes moist and pink. Dentition is intact. NECK: Shows anterior throat supple without palpable lymphadenopathy noted. Swallow reflex symmetrical. CHEST: Shows normal on inspection. Breath sounds are clear bilaterally. HEART: Shows S1, S2 clear. No murmurs auscultated. ABDOMEN: Soft, nontender, nondistended. No palpable organomegaly is noted. No rebound or guarding demonstrated. BACK: Shows spine grossly in the midline, slight exaggerated thoracic kyphosis, some minor flattening of lumbar lordotic curvature. Lumbar paraspinous muscle shows symmetrical on inspection, with palpation shows some very firm, tender musculature throughout the upper, middle and lower distribution of paraspinous muscles bilaterally, but only diffusely without specific trigger points. The patient does show good rotation of motion with some minor tenderness with extension, but not with forward flexion, right and left lateral rotation is performed without significant difficulty. No tenderness over the spinous processes, sacrum or sacroiliac regions. EXTREMITIES: Lower extremities show deep tendon reflexes 1+ patellar and tendo calcaneus tendons. Motor exam is approximately 4 on a scale of 5, but symmetrical and good strength with dorsiflexion, extension, quadriceps and hamstring flexion and again symmetrical in all muscle groups. Peripheral pulses are 1+ posterior tibial. No peripheral edema bilaterally. Options were discussed with the patient. The patient's old chart was reviewed as his current medication regimen updated. Current review of systems updated today as well. We will refill the patient's hydrocodone for a 2-month period. The patient had appropriate K-TRACS reporting as well as appropriate urinalysis to date. The patient was given instruction as well as side effects to be aware with the medications and will follow up in approximately 2 months or sooner if necessary. JOSUÉ KEEN MD DR: PANFILO/han JOB#: [id number] / [id number]
== END | disposition home or self-care (01) ==
LOC: PNCL 11:28
PROVIDERS: ATTEND Anesthesiology
DX: M47.816 Spondylosis without myelopathy or radiculopathy, lumbar region (principal); M51.36 Other intervertebral disc degeneration, lumbar region; M48.061 Spinal stenosis, lumbar region without neurogenic claudication
CPT/HCPCS: G0463-25

== ENCOUNTER → 2020-02-25 | Outpatient (CLI) | payer BC ==
--- NOTE | 2020-02-25 13:56 | PAIN ---
DATE OF SERVICE: 02/25/2020 PROGRESS NOTE FOR PAIN CLINIC DIAGNOSES: Lumbar degenerative disk disease, lumbar spinal stenosis and lumbar spondylosis. HISTORY OF PRESENT ILLNESS: The patient is a 59-year-old male who returns for followup status post medication management with hydrocodone. The patient reports he is doing very well with this very stable regimen with about an 80% improvement overall. The patient reports he has less and less strength in his legs, but the pain is mainly in his low back that is bothersome. The pain is fairly well, taking care of with the medication regimen without specific side effects. The patient reports occasional constipation, but fairly well controlled with hydration. The patient reports the pain is a 5 on a scale of 10 at its worst over the past week, 3 on average, 2 at its least and is a 2 today. The patient reports it is aching and constant, worse with walking, standing, better with sitting or lying down, generally does not awaken him from sleep at night from the pain itself. The patient reports no side effects once again with the medication except for some constipation. PHYSICAL EXAMINATION: VITAL SIGNS: The patient's blood pressure is 132/81, pulse 107, respirations 20, temperature 98.5 degrees Fahrenheit, height is 6 feet 1 inch, weight is 240 pounds. GENERAL: The patient is awake, alert, oriented, appropriate, very pleasant demeanor. HEENT: Head shows normocephalic, atraumatic. Extraocular movements are intact and symmetrical. Oral cavity: Mucous membranes moist and pink. Dentition is intact. NECK: Shows anterior throat supple without palpable lymphadenopathy noted. Swallow reflex symmetrical. CHEST: Shows normal on inspection. Breath sounds are clear bilaterally. No rales, rhonchi or wheezes auscultated. HEART: Shows S1, S2 clear. No murmurs auscultated. ABDOMEN: Soft, nontender, nondistended. BACK: Shows spine grossly in the midline. Slight exaggeration of thoracic kyphosis and minor flattening of lumbar lordotic curvature. Lumbar paraspinous muscle shows symmetrical on inspection, with palpation shows some moderate tenderness diffusely bilaterally, but without significant radiation. The patient has good rotational motion of lumbar spine, both laterally as well as extension and flexion without significant increase in pain. EXTREMITIES: Lower extremities show deep tendon reflexes 1+ in the patellar and tendo calcaneus tendons. Motor exam is approximately 4 on a scale of 5, but equal with dorsiflexion and extension. Quadriceps and hamstring flexion is about 3-4 on a scale of 5 bilaterally, but intact. ASSESSMENT AND PLAN: Options were discussed with the patient. The patient's old chart was reviewed as his current medication regimen updated. Current review of systems updated today as well. We will proceed with refill of the patient's hydrocodone 7.5 mg for 2-month period. The patient had appropriate K-TRACS reporting as well as appropriate urinalysis to date. We will check urinalysis today as part of routine screening. The patient will return to the clinic in approximately 2 months or sooner as necessary. JOSUÉ KEEN MD DR: PANFILO/nts JOB#: [id number] / [id number]
== END | disposition home or self-care (01) ==
LOC: PNCL 13:06
PROVIDERS: ATTEND Anesthesiology
DX: Z09 Encounter for follow-up examination after completed treatment for conditions other than malignant neoplasm (principal); M51.36 Other intervertebral disc degeneration, lumbar region; M48.061 Spinal stenosis, lumbar region without neurogenic claudication; M47.896 Other spondylosis, lumbar region; Z91.09 Other allergy status, other than to drugs and biological substances
CPT/HCPCS: G0463

== ENCOUNTER → 2020-04-24 | Outpatient (CLI) | payer BC ==
--- NOTE | 2020-04-24 11:26 | PDOC ---
Progress Note - Pain Clinic Date of Service: DOS: DATE: 04/24/20 TIME: 11:22 Diagnosis: Dx: Lumbar spondylosis with lumbar spinal stenosis and lumbar degenerative disc disease History or Present Illness: HPI: 1-year-old male returns follow-up status post medication management with hydrocodone. Patient reports he is doing fairly well with this with about a 70 to 80% improvement overall with medications without specific side effects and Occasional constipation which he takes care of with [id number] laxatives and hydration. She reports no new motor or sensory deficits but reports increased weakness in his bilateral lower extremities in his low back when he is ambulating. Patient ports he feels unstable and also reports that he has not been exercising and has been fairly sedentary now for several months. Patient reports no new motor or sensory deficits no new bowel or bladder incontinence no side effects with his medication patient reports pain is a 6 on scale 10 is worse over the past week for an average 3 this least is a 4 today. Patient rates his constant aching and shooting in the low back itself and occasionally the lower extremities but mostly in the low back. Reports that his back "locks up" when he is getting out of his chair or starting to walk. Patient ports is not awakening from sleep frequently reports no other complaints. Physical Exam: VS: Blood pressure is 120/81 pulse 105 respiration 16 temperature is 98.8 F PE: PHYSICAL EXAMINATION: GENERAL: The patient is awake, alert, oriented, appropriate, very pleasant demeanor HEENT: Shows normocephalic, atraumatic. Extraocular movements are intact and symmetrical. Oral cavity: Mucous membranes moist and pink. NECK: Shows anterior throat supple without palpable lymphadenopathy noted. CHEST: Shows normal on inspection. Breath sounds are clear bilaterally, distant but no rales rhonchi or wheezes auscultated. HEART: Shows S1, S2 clear. No murmurs auscultated. ABDOMEN: Soft, nontender, nondistended. No palpable organomegaly is noted. No rebound or guarding demonstrated. BACK: Shows spine grossly in the midline. Normal-appearing cervical lordotic curvature. There is slightly increased thoracic kyphosis, some minor flattening of the lumbar lordotic curvature. Lumbar paraspinous muscles show symmetrical on inspection, on palpation shows some moderate tenderness diffusely throughout the upper, middle and lower distribution of the paraspinous muscles bilaterally, but without specific trigger points, without radiation of pain. The patient has good rotational motion of the lumbar spine, both laterally as well as extension and flexion without significant difficulty. No tenderness over the spinous processes, sacrum or sacroiliac regions. EXTREMITIES: Lower extremities show deep tendon reflexes 1+ in the patellar and tendo calcaneus tendons. Motor exam is 4 on a scale of 5 with right modesta siflexion, extension, quadriceps and hamstring flexion and 4/5 on the left. Peripheral pulses are 1 posterior tibial. No peripheral edema is noted bilaterally. Lower extremities are warm and dry to touch, equal in color and appearance. Patient has difficulty standing from seated position and uses his cane as well as both the arms of the chair. Patient presenting in a wheelchair today as w gait is widened stance and somewhat shuffling. SKIN: Shows warm and dry, good turgor. No edema. No sores, rashes or bruising throughout. Procedure: Procedure: Options were discussed with the patient. Patient will chart reviewed his current medication regimen updated current review of systems updated today as well. We will refill patient's medication hydrocodone for 2-month. Patient is had appropriate K tracts reporting as well as appropriate urinalyses to date. Also will add meloxicam 15 mg once daily patient was given instructions well side effects aware of these of his medications will follow-up in roughly 2 months or sooner as necessary. Strongly suggested he increase his activity he has a stationary bicycle reports that he will start using this as well as walking more in his house during the day as well. Medication Injected: Med Injected: None Condition at Discharge: Condition at Discharge: Condition at discharge is stable JOSUÉ KEEN MD Apr 24, 2020 11:26
== END | disposition home or self-care (01) ==
LOC: PNCL 10:54
PROVIDERS: ATTEND Anesthesiology
DX: M51.16 Intervertebral disc disorders with radiculopathy, lumbar region (principal); M48.061 Spinal stenosis, lumbar region without neurogenic claudication; Z79.899 Other long term (current) drug therapy
CPT/HCPCS: G0463

== ENCOUNTER → 2020-06-19 | Outpatient (CLI) | payer BC ==
[~2020-06-19] MED LIST changes: +NICO1PAT25 TP; +TAMS0.4C97 PO
--- NOTE | 2020-06-19 11:39 | PDOC ---
Progress Note - Pain Clinic Date of Service: DOS: DATE: 06/19/20 TIME: 11:36 Diagnosis: Dx: Lumbar degenerative disc disease lumbar spinal stenosis and lumbar spondylosis History or Present Illness: HPI: 59-year-old male returns follow-up status post medication management with hydrocodone and meloxicam. Patient reports doing much better he is increase his activity he has been walking he is trying to quit smoking he is down to only 2 cigarettes a day now has been walking laps around his house about 100 feet at a time is doing this for 5 times a day is walking and out of his wheelchair most of the time. Patient reports he has a walker now which he brings with him and has it with him today still some pain in the low back region much better and is feeling much better as well. Patient reports he is trying to lose some weight also and is generally doing much better. Patient reports that no side effects with his medications reports his pain in the last week is a 5 on a scale of 10 is worse 3 on average and a to its least is a 3 today patient was aching and constant in the low back worse with walking but he is still walking and getting some exercise done despite this. Patient reports no new motor or sensory deficits no new bowel or bladder incontinence again no side effects with medications. Physical Exam: VS: Blood pressure is 142/82 pulse 103 respirations 20 temperature 90.6 F weight is 247 pounds PE: PHYSICAL EXAMINATION: GENERAL: The patient is awake, alert, oriented, appropriate, very pleasant demeanor HEENT: Shows normocephalic, atraumatic. Extraocular movements are intact and symmetrical. Oral cavity: Mucous membranes moist and pink. Dentition is intact. NECK: Shows anterior throat supple without palpable lymphadenopathy noted. Swallow reflex symmetrical. CHEST: Shows normal on inspection. Breath sounds are clear bilaterally, distant but no rales rhonchi wheezes auscultated. HEART: Shows S1, S2 clear. No murmurs auscultated. ABDOMEN: Soft, nontender, nondistended, obese. No palpable organomegaly is noted. No rebound or guarding demonstrated. BACK: Shows spine grossly in the midline. Normal-appearing cervical lordotic curvature. There is slightly increased thoracic kyphosis, some minor flattening of the lumbar lordotic curvature. Lumbar paraspinous muscles show symmetrical on inspection, on palpation shows some moderate tenderness diffusely throughout the upper, middle and lower distribution of the paraspinous muscles, but without specific trigger points, without radiation of pain. The patient has good rotational motion of the lumbar spine, both laterally as well as extension and flexion without significant difficulty. No tenderness over the spinous processes, sacrum or sacroiliac regions. EXTREMITIES: Lower extremities show deep tendon reflexes 1+ in the patellar and tendo calcaneus tendons. Motor exam is 4 on a scale of 5 with right dorsiflexion, extension, quadriceps and hamstring flexion and 4/5 on the left. Peripheral pulses are 1+ posterior tibial. No peripheral edema is noted bilaterally. Lower extremities are warm and dry to touch, equal in color and appearance. SKIN: Shows warm and dry, good turgor. No edema. No sores, rashes or bruising throughout. Procedure: Procedure: Options were discussed with the patient. Patient chart was reviewed his his current medication regimen updated current review of systems updated today as well. We will refill patient's medication for 2-month., Patient has had appropriate K. Trax reporting as well as appropriate urinalyses to date. Was given instruction as well as side effects beware with each of the medications and will follow-up in approximate 2 months or sooner as necessary. Patient was encouraged to maintain his increased activity and exercise routine also weight loss and to continue decreasing smoking. Medication Injected: Med Injected: None Condition at Discharge: Condition at Discharge: Condition at discharge is stable. JOSUÉ KEEN MD Jun 19, 2020 11:39
== END ==
LOC: PNCL 10:31
PROVIDERS: ATTEND Anesthesiology
DX: M51.16 Intervertebral disc disorders with radiculopathy, lumbar region (principal); M48.061 Spinal stenosis, lumbar region without neurogenic claudication; M47.816 Spondylosis without myelopathy or radiculopathy, lumbar region; F17.210 Nicotine dependence, cigarettes, uncomplicated; Z79.899 Other long term (current) drug therapy
CPT/HCPCS: G0463

== ENCOUNTER → 2020-08-17 | Outpatient (CLI) | payer BC ==
--- NOTE | 2020-08-17 12:02 | PDOC ---
Progress Note - Pain Clinic Date of Service: DOS: DATE: 08/17/20 TIME: 11:58 Diagnosis: Dx: Lumbar degenerative disc disease with lumbar spinal stenosis and lumbar spondylosis History or Present Illness: HPI: 59-year-old male returns in follow-up status post medication management with hydrocodone and meloxicam. Patient reports been doing very well very stable regimen of the hydrocodone and meloxicam with about 70 to 75% improvement with the medication regimen without specific side effects. Patient reports he had pneumonia about 4 weeks ago and this is hampered his energy significantly as he is not been able to exercise as frequently as he was and he is using a wheelchair again on his presentation today. Patient reports generally has been using a walker at home and is trying to walk laps around his house inside when he can but has had very little energy lately secondary to the pneumonia but is been trying to get more active. Patient reports the pain is in the low back is fairly manageable with his medications describes pain as aching and constant in the low back itself sometimes tightness shooting but mostly aching in the low back with walking and standing better with sitting or laying down generally does not awaken her from sleep at night patient reports the pain is a 5 on a scale 10 is worse over the past week 3 on average to its least and is a 2 today.patient reports no new motor or sensory deficits no new bowel or bladder incontinence or other complaints Physical Exam: VS: Pressure is 129/74 pulse 91 respirations 18 temperature 90.1 F height 6 foot 1 his weight is 237 pounds PE: PHYSICAL EXAMINATION: GENERAL: The patient is awake, alert, oriented, appropriate, very pleasant demeanor HEENT: Shows normocephalic, atraumatic. Extraocular movements are intact and symmetrical. Oral cavity: Mucous membranes moist and pink. Dentition is intact . NECK: Shows anterior throat supple without palpable lymphadenopathy noted. Swallow reflex symmetrical. CHEST: Shows normal on inspection. Breath sounds are clear bilaterally, distant but no rales rhonchi or wheezes auscultated bilaterally. HEART: Shows S1, S2 clear. No murmurs auscultated. ABDOMEN: Soft, nontender, nondistended, obese. No palpable organomegaly is noted. No rebound or guarding demonstrated. BACK: Shows spine grossly in the midline. Normal-appearing cervical lordotic curvature. There is slightly increased thoracic kyphosis, some flattening of the lumbar lordotic curvature. Lumbar paraspinous muscles show symmetrical on inspection, on palpation shows some moderate tenderness diffusely throughout the upper, middle and lower distribution of the paraspinous muscles bilaterally without specific trigger points, without radiation of pain. The patient has good rotational motion of the lumbar spine, both laterally as well as extension and flexion without significant difficulty. No tenderness over the spinous processes, sacrum or sacroiliac regions. EXTREMITIES: Lower extremities show deep tendon reflexes 1+ in the patellar and tendo calcaneus tendons. Motor exam is 4 on a scale of 5 with right dorsiflexion, extension, quadriceps and hamstring flexion and 4/5 on the left. Peripheral pulses are 1+ posterior tibial. No peripheral edema is noted bilaterally. Lower extremities are warm and dry to touch, equal in color and appearance. SKIN: Shows warm and dry, good turgor. No edema. No sores, rashes or bruising throughout. Procedure: Procedure: Options were discussed with the patient. Patient chart was reviewed his his current medication regimen updated current review of systems updated today as well. We will refill patient's medication as he is been on a very consistent dose with good effectiveness and has had appropriate K tracts reporting and urinalyses to date. Patient will be given a 2-month prescription with instructions side effects beware of each of the medications and will follow-up in approximate 2 months or sooner if necessary. Medication Injected: Med Injected: None Condition at Discharge: Condition at Discharge: Condition at discharge is stable. JOSUÉ KEEN MD Aug 17, 2020 12:02
== END | disposition home or self-care (01) ==
LOC: PNCL 11:32
PROVIDERS: ATTEND Anesthesiology
DX: M51.36 Other intervertebral disc degeneration, lumbar region (principal); M48.061 Spinal stenosis, lumbar region without neurogenic claudication; M47.816 Spondylosis without myelopathy or radiculopathy, lumbar region; Z98.890 Other specified postprocedural states
CPT/HCPCS: G0463

== ENCOUNTER 2020-10-10 07:58 | Emergency (ER) | payer BC ==
[~2020-10-10] VITALS: Ht 182.9 cm; Wt 109.0 kg
--- NOTE | 2020-10-10 08:13 | ED.ADGEN ---
General Adult EDM: Chief Complaint: MECHANICAL FALL HPI: HPI: Patient is a 59-year-old male brought in by EMS for a fall. Patient states about 2 hours prior to arrival he was trying to walk back to his bed from his bathroom and his left leg "gave out". Patient did not hit his head or lose consciousness. Patient states he has a history of lower extremity weakness secondary to diabetes, spinal stenosis, and decreased activity. Complaining of pain in his left hip, left knee, left foot. Denies any loss sensation. Has an abrasion to the dorsum of his left foot but no other injuries or bleeding. Tetanus up-to-date. States he otherwise has been well except for an episode of pneumonia 1 month ago which was treated with doxycycline. Review of Systems: Review of Systems: All other systems within normal limits except for as noted in the HPI Current Medications: Current Medications Medications (Trade) Dose Ordered Sig/Rajendra Start Time Stop Time Status Last Admin Dose Admin Bacitracin (Bacitracin Zinc Oint Pkt) 1 pkt STK-MED ONCE 10/10/20 09:21 10/10/20 09:21 DC Fentanyl Citrate (Fentanyl 2ml Vial) 100 mcg 1X ONCE 10/10/20 09:45 10/10/20 09:46 DC 10/10/20 09:48 100 MCG Ketorolac Tromethamine (Toradol 15mg Vial) 15 mg 1X ONCE 10/10/20 09:45 10/10/20 09:46 DC 10/10/20 09:48 15 MG Neomycin/ Polymyxin/ Bacitracin (Triple Antibiotic Ointment) 1 pkt 1X ONCE 10/10/20 09:30 10/10/20 09:31 DC 10/10/20 09:47 1 PKT Allergies: Allergies: Allergies Coded Allergies Type Severity Reaction Last Updated Verified No Known Drug Allergies 06/02/14 No Physical Exam: PE: Constitutional: Well developed, well nourished, no acute distress, non-toxic appearance. [] HENT: Normocephalic, atraumatic, bilateral external ears normal, nose normal. [] Eyes: PERRLA, conjunctiva normal, no discharge. [] Neck: No rigidity, supple, no stridor. [] Cardiovascular: Regular rate and rhythm, brisk cap refill [] Lungs & Thorax: Non labored symmetric respirations, no tachypnea or respiratory distress [] Abdomen: Soft, nondistended. Skin: Warm, dry, no erythema, no rash. 3 cm diameter superficial abrasion to dorsum of foot at base of great toe [] Back: Unremarkable Extremities: No deformities, range of motion grossly intact, no lower extremity edema. Tenderness over left greater trochanter, left knee without effusion. [] Neurologic: Alert and oriented X 3, no focal deficits noted. [] Psychologic: Affect normal, judgement normal, mood normal. [] EKG: EKG: [] Heart Score: Risk Factors: Risk Factors: DM, Current or recent (<one month) smoker, HTN, HLP, family history of CAD, obesity. Risk Scores: Score 0 - 3: 2.5% MACE over next 6 weeks - Discharge Home Score 4 - 6: 20.3% MACE over next 6 weeks - Admit for Clinical Observation Score 7 - 10: 72.7% MACE over next 6 weeks - Early Invasive Strategies Radiology/Procedures: Radiology/Procedures: Examination: 2 views of the left hip with frontal view the pelvis, 3 views of the left knee, 3 views of the left foot. HISTORY: History of fall, pain COMPARISON: None available. FINDINGS: The bilateral femoral heads within the acetabula. Mild joint space loss identified in the bilateral hip joint likely degenerative changes. Moderate joint space loss identified in the medial, lateral compartments of the knee lik kennedy degenerative changes with chondrocalcinosis. Small knee joint effusion. Old fractures of the second, third, fourth metatarsal necks. Moderate joint space loss identified in the first metatarsophalangeal joint likely degenerative changes. Partially visualized screw identified in the lateral malleolus. IMPRESSION: 1. No obvious acute fracture. 2. Chondrocalcinosis of the knee joint. Moderate tricompartmental degenerative changes knee joint. 3. Moderate degenerative changes bilateral hip joints. 4. Old fractures of the second, third, fourth metatarsal necks. [] Course & Med Decision Making: Course & Med Decision Making Able to ambulate with walker, patient ready go home. [] Dragon Disclaimer: Dragon Disclaimer: This electronic medical record was generated, in whole or in part, using a voice recognition dictation system. Departure Departure Impression: Primary Impression: Fall Additional Impression: Contusion of left hip Disposition: 01 DC HOME SELF CARE/HOMELESS Condition: STABLE Referrals: RAQUEL CANDELARIO MD (PCP) Patient Instructions: RICE - Routine Care for Injuries Additional Instructions: May take your hydrocodone with ibuprofen as needed. Limit ibuprofen use to 800 mg every 8 hours. Problem Qualifiers ANASTASIYA VALLEJO MD Oct 10, 2020 08:13
--- NOTE | 2020-10-10 08:51 | RAD ---
Examination: 2 views of the left hip with frontal view the pelvis, 3 views of the left knee, 3 views of the left foot. HISTORY: History of fall, pain COMPARISON: None available. FINDINGS: The bilateral femoral heads within the acetabula. Mild joint space loss identified in the bilateral h ip joint likely degenerative changes. Moderate joint space loss identified in the medial, lateral com partments of the knee likely degenerative changes with chondrocalcinosis. Small knee joint effusion. Old fractures of the second, third, fourth metatarsal necks. Moderate joint space loss identified in the first metatarsophalangeal joint likely degenerative changes. Partially visualized screw identifie d in the lateral malleolus. IMPRESSION: 1. No obvious acute fracture. 2. Chondrocalcinosis of the knee joint. Moderate tricompartmental degenerative changes knee joint. 3. Moderate degenerative changes bilateral hip joints. 4. Old fractures of the second, third, fourth metatarsal necks. Electronically signed by: Dieter Martinez MD (10/10/2020 8:48 AM) [id number]
[2020-10-10] MEDS ORDERED: BACITRACIN TOPICAL OINT PACKET. TP ONE (09:21)
[2020-10-10] MEDS ORDERED: NEOMY/BACITR/POLYMYXIN OINT PACKET. TP ONE (09:30)
[2020-10-10] MEDS ORDERED: fentaNYL PF VIAL 100 MCG/2 ML VIAL IVP ONE (09:45)
[2020-10-10] MEDS ORDERED: KETOROLAC 15 MG/ML VIAL. IVP ONE (09:45)
[2020-10-10 10:18] VITALS: BP 118/77
== END 2020-10-10 10:20 | disposition home or self-care (01) ==
LOC: ER 07:58
DX: S70.02XA Contusion of left hip, initial encounter (principal); S90.812A Abrasion, left foot, initial encounter; M25.562 Pain in left knee; E11.9 Type 2 diabetes mellitus without complications; W18.39XA Other fall on same level, initial encounter; Y93.89 Activity, other specified; Y92.89 Other specified places as the place of occurrence of the external cause; Y99.8 Other external cause status
CPT/HCPCS: 73502; 73562; 73630; 96374; 96375; 99284; J1885; J3010

== ENCOUNTER → 2020-10-13 | Outpatient (CLI) | payer BC ==
[2020-10-10 10:18] VITALS: BP 118/77
--- NOTE | 2020-10-13 12:30 | PDOC ---
Progress Note - Pain Clinic Date of Service: DOS: DATE: 10/13/20 TIME: 12:27 Diagnosis: Dx: Lumbar degenerative disc disease with lumbar spinal stenosis and lumbar spondylosis History or Present Illness: HPI: 59-year-old male returns for follow-up status post medication management with hydrocodone and meloxicam. Patient reports he is doing very well with this very stable regimen with about a 75 to 80% improvement in the pain in the low back patient reports has been getting more active lately has been tried exercise and uses a stationary bicycle at home although he fell about a week and a half ago injuring his left knee and foot and is been limiting his exercise since that time. Patient reports still has significant pain in the low back and down the left leg after the fall but his low back pain is an 8 on scale 10 is worse over the past week 6 on average 6 its least and is a 6 today patient reports its worse with walking and standing better with sitting or laying down and again it was exacerbated by exercise and so he is holding exercise currently. Patient reports no significant side effects with the medication. Patient scribes the pain in the back is aching and sharp at times can be constant with repetitive motions but better with laying or sitting it does not disturb his sleep. Patient reports no new motor or sensory deficits no new bowel or bladder incontinence. Physical Exam: VS: Blood pressure is 140/78 pulse 121 respirations 18 temperature 98.2 F height is 6 foot 1 his weight is 240 pounds PE: PHYSICAL EXAMINATION: GENERAL: The patient is awake, alert, oriented, appropriate, very pleasant demeanor HEENT: Shows normocephalic, atraumatic. Extraocular movements are intact and symmetrical. Oral cavity: Mucous membranes moist and pink. NECK: Shows anterior throat supple without palpable lymphadenopathy noted. Swallow reflex symmetrical. CHEST: Shows normal on inspection. Breath sounds are clear bilaterally. HEART: Shows S1, S2 clear. No murmurs auscultated. ABDOMEN: Soft, nontender, nondistended, obese. No palpable organomegaly is noted. BACK: Shows spine grossly in the midline. Normal-appearing cervical lordotic curvature. There is slightly increased thoracic kyphosis, some minor flattening of the lumbar lordotic curvature. Lumbar paraspinous muscles show symmetrical on inspection, on palpation shows some moderate tenderness diffusely throughout the upper, middle and lower distribution of the paraspinous muscles bilaterally without specific trigger points, without radiation of pain. The patient has good rotational motion of the lumbar spine, both laterally as well as extension and flexion with some mild tenderness with extension but not with forward flexion or right or left lateral rotation. EXTREMITIES: Lower extremities show deep tendon reflexes 1+ in the patellar and tendo calcaneus tendons. Motor exam is 4 on a scale of 5 with right dorsiflexion, extension, quadriceps and hamstring flexion and 4/5 on the left. Peripheral pulses are 1+ posterior tibial. No peripheral edema is noted bilaterally. SKIN: Shows warm and dry, good turgor. No edema. No sores, rashes or bruising throughout. Procedure: Procedure: Options were discussed with the patient. Patient chart reviews his current medication regimen updated current review of systems updated today as well. We will refill patient's hydrocodone as well as meloxicam both with instructions side effects to be aware of covered with each. Patient has had appropriate K tracks report as well as appropriate urinalyses to date, and we will make this a 2-month prescription for follow-up. Patient return to clinic in approximate 2 months or sooner as necessary. Medication Injected: Med Injected: None Condition at Discharge: Condition at Discharge: Condition at discharge is stable. JOSUÉ KEEN MD Oct 13, 2020 12:30
== END | disposition home or self-care (01) ==
LOC: PNCL 11:00
PROVIDERS: ATTEND Anesthesiology
DX: M48.061 Spinal stenosis, lumbar region without neurogenic claudication (principal); M51.36 Other intervertebral disc degeneration, lumbar region; M47.816 Spondylosis without myelopathy or radiculopathy, lumbar region; F17.210 Nicotine dependence, cigarettes, uncomplicated; Z79.899 Other long term (current) drug therapy; Z98.890 Other specified postprocedural states
CPT/HCPCS: G0463

== ENCOUNTER → 2020-11-20 | Outpatient (CLI) | payer BC ==
--- NOTE | 2020-11-20 16:18 | KCIC ---
EXAM: Lumbar spine MRI without contrast. HISTORY: Pain and lower extremity weakness. TECHNIQUE: Multiplanar, multisequence magnetic resonance imaging of the lumbar spine was performed wi thout contrast. COMPARISON: None. FINDINGS: There is mild lumbar scoliosis. There is no significant listhesis. There is multilevel endp late remodeling. There is mild disc desiccation at multiple levels. There is a benign hemangioma with in L4. There is no suspicious osseous lesion. There is no acute or subacute fracture. The conus termi nates at T12-L1. At L1-L2, there is left anterior predominant endplate osteophytosis. There is no stenosis. At L2-L3, there is a right foraminal disc protrusion superimposed on a disc bulge and endplate osteop hytosis. There is mild bilateral facet arthropathy. There is mild right foraminal stenosis and abutme nt the exiting right L2 nerve root. There is mild central canal stenosis. At L3-L4, there is a suspected shallow left foraminal disc protrusion superimposed on a disc bulge an d endplate osteophytosis. There is mild right and moderate left facet arthropathy. There is mild bila teral foraminal stenosis and abutment the exiting left greater than right L3 nerve roots. At L4-L5, there is a posterior central disc protrusion superimposed on a disc bulge and endplate albino deling. There is mild right and moderate left facet arthropathy. There is mild bilateral foraminal st enosis. There is moderate central canal stenosis. At L5-S1, there is a left foraminal to lateral disc protrusion and osteophyte complex superimposed on a disc bulge and endplate remodeling. There is mild left facet arthropathy. There is mild left zac inal stenosis. There is narrowing of the left lateral recess. IMPRESSION: Multilevel degenerative change involving the lumbar spine, described in detail above. Thi s results in foraminal and central canal stenosis at the aforementioned levels. Electronically signed by: Ayesha Carter MD (11/20/2020 4:16 PM) [id number]
== END ==
LOC: KCIC MRI 15:17
PROVIDERS: ATTEND Orthopaedic Surgery
DX: M47.817 Spondylosis without myelopathy or radiculopathy, lumbosacral region (principal); M48.061 Spinal stenosis, lumbar region without neurogenic claudication; M25.78 Osteophyte, vertebrae
CPT/HCPCS: 72148

== ENCOUNTER → 2020-12-08 | Outpatient (CLI) | payer BC ==
[~2020-12-08] MED LIST changes: +BUPR100T7 PO; +MELO15TA23 PO; +VALIUM10 MG PO
--- NOTE | 2020-12-08 12:23 | PDOC ---
Progress Note - Pain Clinic Date of Service: DOS: DATE: 12/08/20 TIME: 12:20 Diagnosis: Dx: Lumbar degenerative disc disease with lumbar spinal stenosis and lumbar spondylosis History or Present Illness: HPI: 59-year-old male returns to follow-up status post medication management with hydrocodone and meloxicam. Patient reports he is doing fairly well with this been a very stable regimen with about a 70% improvement in pain with the medications but still having some increased pain in the low back lately. Patient had seen his orthopedist who got a MRI scan lumbar spine which we discussed with him today showing some multilevel degenerative changes at L3-4 L4-5 and L5-S1 with posterior central disc protrusion and left foraminal disc protrusion L5-S1 posterior central disc fusion L4-5 and shallow left foraminal disc protrusion at L34 patient is also had neurosurgical consultation not recommending any surgical intervention at this time. Patient reports still significant pain in the low back and occasionally the lower extremities left greater than right. Patient reports is aching and constant worse with walking standing changing positions better with sitting or laying down generally does not awaken him from sleep at night. Patient reports no medication side effects and has been on a very stable regimen to date. Physical Exam: VS: Blood pressure is 131/78 pulse 90 respirations 16 temperature 98.7 F weight is 247 pounds PE: PHYSICAL EXAMINATION: GENERAL: The patient is awake, alert, oriented, appropriate, very pleasant demeanor HEENT: Shows normocephalic, atraumatic. Extraocular movements are intact and symmetrical. Oral cavity: Mucous membranes moist and pink. NECK: Shows anterior throat supple without palpable lymphadenopathy noted. Swallow reflex symmetrical. CHEST: Shows normal on inspection. Breath sounds are clear bilaterally, no rales or rhonchi bilaterally. HEART: Shows S1, S2 clear. No murmurs auscultated. ABDOMEN: Soft, nontender, nondistended, obese. No palpable organomegaly is noted. BACK: Shows spine grossly in the midline. Normal-appearing cervical lordotic curvature. There is slightly increased thoracic kyphosis, some minor flattening of the lumbar lordotic curvature. Lumbar paraspinous muscles show symmetrical on inspection, on palpation shows some moderate tenderness diffusely throughout the upper, middle and lower distribution of the paraspinous muscles without specific trigger points, without radiation of pain. The patient has good rotational motion of the lumbar spine, both laterally as well as extension and flexion without significant difficulty. EXTREMITIES: Lower extremities show deep tendon reflexes 1+ in the patellar and tendo calcaneus tendons. Motor exam is 4 on a scale of 5 with right modesta siflexion, extension, quadriceps and hamstring flexion and 4/5 on the left. Peripheral pulses are 1+ posterior tibial. No peripheral edema is noted bilaterally. Lower extremities are warm and dry. SKIN: Shows warm and dry, good turgor. No edema. No sores, rashes or bruising throughout. Procedure: Procedure: Options were discussed with the patient. Patient's old chart reviews his current medication regimen updated current review of systems updated today as well. We will refill patient's medication as he has been on very stable regimen has had appropriate K tracts reporting as well as appropriate urinalyses to date. Patient was given instructions well side effects beware of each of the medications and will follow up in approximately 2 months or sooner as necessary. We did discuss possibility of lumbar epidural steroid injection regarding patient's recent increase in low back pain symptoms radicular pain and recent MRI scan. Patient will consider this and we will check with preauthorization requirements with his insurance provider as well. Medication Injected: Med Injected: None Condition at Discharge: Condition at Discharge: Condition at discharge is stable. JOSUÉ KEEN MD Dec 08, 2020 12:23
== END | disposition home or self-care (01) ==
LOC: PNCL 11:32
PROVIDERS: ATTEND Anesthesiology
DX: M51.36 Other intervertebral disc degeneration, lumbar region (principal); M48.061 Spinal stenosis, lumbar region without neurogenic claudication; M47.816 Spondylosis without myelopathy or radiculopathy, lumbar region; F17.210 Nicotine dependence, cigarettes, uncomplicated; Z79.84 Long term (current) use of oral hypoglycemic drugs; Z79.899 Other long term (current) drug therapy; Z88.8 Allergy status to other drugs, medicaments and biological substances
CPT/HCPCS: G0463

== ENCOUNTER → 2020-12-10 | Outpatient (CLI) | payer BC ==
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
== END ==
LOC: KCIC MRI 07:58
PROVIDERS: ATTEND Neurological Surgery
DX: M47.813 Spondylosis without myelopathy or radiculopathy, cervicothoracic region (principal); M48.03 Spinal stenosis, cervicothoracic region; M25.78 Osteophyte, vertebrae
CPT/HCPCS: 72141; 72146

== ENCOUNTER → 2021-02-02 | Outpatient (CLI) | payer BC ==
--- NOTE | 2021-02-02 12:22 | PDOC ---
Progress Note - Pain Clinic Date of Service: DOS: DATE: 02/02/21 TIME: 12:16 Diagnosis: Dx: Lumbar radiculopathy with lumbar spinal stenosis lumbar spondylosis and lumbar degenerative disc disease Cervical radiculopathy with cervical degenerative disc disease and cervical spinal stenosis History or Present Illness: HPI: 60-year-old male returns for follow-up status post medication management and MRI scans of both the cervical and thoracic spine as well as a lumbar spine which was done in November. Patient reports still significant pain in the base the neck and shoulders upper extremities his main complaint is low back and bilateral lower extremity pain pain radiating slightly more on the left than the right but present bilaterally posterior gluteus posterior lateral thighs and medial thigh medial lower leg on the left side to the ankle with walking and standing patient reports is been using a wheelchair when he can due to being more weak with the left leg and more difficult to ambulate. Patient is using a walker when he is at home but is having some shoulder pain from putting all his weight on his upper extremities when walking or moving. Patient reports still significant pain in the left knee as well as left lower leg patient is has been doing stretching and strength exercises has physical therapy coming to his house twice a week to do home therapy and is doing some stretching in between but the pain is not significantly reduced. Patient reports pain in the base the neck and shoulders as well the upper extremities but is secondary. Patient's MRI scans both cervical and lumbar spines were reviewed with him today showing multiple areas of stenosis as well as foraminal protrusions in the lumbar spine L3-4 L4-5 L5, with mild bilateral foraminal stenosis at L4-5 mild bilateral foraminal stenosis L3-4 abutting the exiting left greater than right L3 nerve roots and mild left foraminal stenosis at the L5-S1 level as well. Cervical spine showing multilevel advanced cervical spondylosis C3-4 C4-5 C5-6 C6-7 with severe right and mild left facet arthropathy severe bilateral neuroforaminal narrowing C5-6 mild right and severe left neuroforaminal narrowing C4-5 and moderate right and severe left neural foramen at C3-4. Patient reports significant fatigability of the left lower extremity compared to the right again using his wheelchair as it is becoming more fatigued and too difficult to walk longer periods with his lower extremities. Patient has been taking hydrocodone as well as meloxicam which decreases the pain significantly but is not reducing it where he is able to walk confidently. Physical Exam: VS: Blood pressure 145/89 pulse 105 respirations 18 temperature 98.2 F height is 6 foot weight weight is 247 pounds PE: PHYSICAL EXAMINATION: GENERAL: The patient is awake, alert, oriented, appropriate, very pleasant in demeanor HEENT: Shows normocephalic, atraumatic. Extraocular movements are intact and symmetrical. NECK: Shows anterior throat supple without palpable lymphadenopathy noted. Swallow reflex symmetrical. CHEST: Shows normal on inspection. Breath sounds are clear bilaterally, distant but no rales or rhonchi auscultated. HEART: Shows S1, S2 clear. No murmurs auscultated. ABDOMEN: Soft, nontender, nondistended obese. BACK: Shows spine grossly in the midline. Normal-appearing cervical lordotic curvature. Neck shows cervical spine in the midline paraspinous muscles are symmetrical on inspection with palpation shows some moderate tenderness diffusely in the inferior aspect the cervical paraspinous puncture into the superior medial trapezius bilaterally but without radiation or trigger points. Patient is full rotation motion cervical spine both laterally as well as full extension full forward flexion without significant increase in pain. There is slightly increased thoracic kyphosis, some minor flattening of the lumbar lordotic curvature. Lumbar paraspinous muscles show symmetrical on inspection, on palpation shows some moderate tenderness diffusely throughout the upper, middle and lower distribution of the paraspinous muscles without specific trigger points, without radiation of pain. The patient has good rotational motion of the lumbar spine, both laterally as well as extension and flexion without significant difficulty. EXTREMITIES: Lower extremities show deep tendon reflexes 1+ in the patellar and tendo calcaneus tendons. Motor exam is 4 on a scale of 5 with right dorsiflexion, extension, quadriceps and hamstring flexion and 4/5 on the left. Peripheral pulses are 1+ posterior tibial. No peripheral edema is noted bilaterally. Lower extremities are warm and dry. Upper extremity show deep te ndon reflexes 2+ in the bicep tricep tendons school nurse strength approximate 4 to scale 5 equal and symmetrical right and left as well as bicep and tricep flexion 4 on a scale of 5 bilaterally. Shoulder shrug strong and intact without loss of strength on resistance. Peripheral pulses are 2+ radial. SKIN: Shows warm and dry, good turgor. No edema. No sores, rashes or bruising throughout. Procedure: Procedure: Options were discussed with the patient. Patient's old chart was reviewed his current medication regimen updated current review of systems updated today as well. We will preauthorize patient for a lumbar epidural steroid injection as he has significant radicular pain in the low back specially in the left but bilaterally the L4-5 dermatomal distribution. Patient continue with stretching strength exercises physical therapy visits as currently as well as oral hydrocodone and meloxicam. Once approved we will have him return for translaminar approach L4-5 lumbar epidural steroid injection at that time. Patient was given refills for hydrocodone as well meloxicam, patient has had appropriate K [facility] report as well as appropriate urinalyses to date we will make this a 2-month refill. Medication Injected: Med Injected: None Condition at Discharge: Condition at Discharge: Condition at discharge is stable. JOSUÉ KEEN MD Feb 02, 2021 12:22
== END | disposition home or self-care (01) ==
LOC: PNCL 11:27
PROVIDERS: ATTEND Anesthesiology
DX: M51.16 Intervertebral disc disorders with radiculopathy, lumbar region (principal); M47.26 Other spondylosis with radiculopathy, lumbar region; M50.10 Cervical disc disorder with radiculopathy, unspecified cervical region; M48.02 Spinal stenosis, cervical region; F17.210 Nicotine dependence, cigarettes, uncomplicated; Z79.84 Long term (current) use of oral hypoglycemic drugs; Z79.899 Other long term (current) drug therapy
CPT/HCPCS: 99212; G0463

== ENCOUNTER → 2021-04-27 | Outpatient (CLI) | payer BC ==
--- NOTE | 2021-04-27 14:20 | PDOC ---
Progress Note - Pain Clinic Date of Service: DOS: DATE: 04/27/21 TIME: 14:16 Diagnosis: Dx: Lumbar radiculopathy lumbar degenerative disease lumbar spinal stenosis with spondylosis Cervical radiculopathy with cervical degenerative disc disease and cervical spinal stenosis History or Present Illness: HPI: 60-year-old male returns for follow-up status post medication management with hydrocodone 7.5 mg and meloxicam. Patient reports doing fairly well with this regimen has been joint pain fairly well about a 70% improvement overall without any specific side effects. Patient reports his pain is in the low back mainly into the bilateral lower extremities but mostly in the back patient reports a 5 on a scale of 10 is worse over the past week 3 on average to its least is a 3 today patient reports better with sitting or laying down patient has a motorized wheelchair has been using now described the pain is aching and constant but with the wheelchair using [address] much stress on his back which does decrease the pain significantly. Patient reports no new motor or sensory deficits no bowel or bladder incontinence reports its better with walking gettin g up and down from the chair but again using his electric wheelchair as much as possible. Patient reports he sleeping well at night does not generally bother him when he is sitting or laying down. Physical Exam: VS: Blood pressure is 133/87 pulse 93 respirations 18 temperature 90.4 F height 6 foot 1 his weight is 237 pounds PE: PHYSICAL EXAMINATION: GENERAL: The patient is awake, alert, oriented, appropriate, very pleasant in demeanor HEENT: Shows normocephalic, atraumatic. Extraocular movements are intact and symmetrical. Oral cavity: Mucous membranes moist and pink. NECK: Shows anterior throat supple without palpable lymphadenopathy noted. CHEST: Shows normal on inspection. Breath sounds are clear bilaterally, distant but no rales or rhonchi. HEART: Shows S1, S2 clear. No murmurs auscultated. ABDOMEN: Soft, nontender, nondistended, obese. No palpable organomegaly is noted. BACK: Shows spine grossly in the midline. Normal-appearing cervical lordotic curvature. There is increased thoracic kyphosis, some flattening of the lumbar lordotic curvature. Lumbar paraspinous muscles show symmetrical on inspection, on palpation shows some moderate tenderness diffusely throughout the upper, middle and lower distribution of the paraspinous muscles without specific trigger points, without radiation of pain. The patient has good rotational motion of the lumbar spine, both laterally as well as extension and flexion without significant difficulty. EXTREMITIES: Lower extremities show deep tendon reflexes 1+ in the patellar and tendo calcaneus tendons. Motor exam is 4 on a scale of 5 with right dorsiflexion, extension, quadriceps and hamstring flexion and 4/5 on the left. Peripheral pulses are 1+ posterior tibial. No peripheral edema is noted bilaterally. Lower extremities are warm and dry. SKIN: Shows warm and dry, good turgor. No edema. No sores, rashes or bruising throughout. Procedure: Procedure: Options discussed with the patient. Patient chart was reviewed his current medication regimen updated current review of systems updated today as well. We will proceed with refill of patient's hydrocodone patient given instructions well side effects aware of these of medications. Patient is had appropriate K tracks report as well as appropriate urinalyses to date and we make this for a 1 month refill patient given instructions well side effects aware with medication. Patient will follow up in approximately 1 month as scheduled. Medication Injected: Med Injected: None Condition at Discharge: Condition at Discharge: Condition at discharge is stable. JOSUÉ KEEN MD Apr 27, 2021 14:20
== END | disposition home or self-care (01) ==
LOC: PNCL 13:35
PROVIDERS: ATTEND Anesthesiology
DX: M51.16 Intervertebral disc disorders with radiculopathy, lumbar region (principal); M48.061 Spinal stenosis, lumbar region without neurogenic claudication; M47.26 Other spondylosis with radiculopathy, lumbar region; M50.10 Cervical disc disorder with radiculopathy, unspecified cervical region; M48.02 Spinal stenosis, cervical region; F17.210 Nicotine dependence, cigarettes, uncomplicated; Z79.82 Long term (current) use of aspirin; Z79.84 Long term (current) use of oral hypoglycemic drugs; Z79.899 Other long term (current) drug therapy
CPT/HCPCS: 99212; G0463

== ENCOUNTER → 2021-05-24 | Outpatient (CLI) | payer BC ==
--- NOTE | 2021-05-24 13:12 | PDOC ---
Progress Note - Pain Clinic Date of Service: DOS: DATE: 05/24/21 TIME: 13:09 Diagnosis: Dx: Lumbar degenerative disc disease with lumbar radiculopathy spinal stenosis and lumbar spondylosis Cervical radiculopathy with cervical degenerative disc disease and cervical spinal stenosis History or Present Illness: HPI: Telemedicine visit today with patient's identity verified with full date of as well as full name, total time spent: 14 minutes 60-year-old male with above diagnoses via telemedicine today requesting refill o f patient's medication, hydrocodone 7.5 mg. Patient reports he is doing very well has been a very stable regimen he has had appropriate K tracks report as well as appropriate urinalyses to date as well. Patient reports no side effects with medication still significant pain in the low back and has had before as well as the upper back and shoulders. Patient reports he is doing fairly well however with about a 75 to 80% improvement with the medications alone and again without any significant side effects. Patient is increase his activity some extent is been working at his home but reports that he knows how far he can push the envelope for the pain is debilitating. Patient reports no other concerns no new motor or sensory deficits no bowel or bladder incontinence. We will refill patient's medication with instructions side effects beware of discussed and will be electronically prescribed. Patient will follow up in approximately 1 month as scheduled. Physical Exam: PE: JOSUÉ KEEN MD May 24, 2021 13:12
--- NOTE | 2021-05-24 16:20 | NUR ---
Pt called clinic to request a refill of his hydrocodone for his chronic pain. States his pain level today is 3/10 and experiencing no side effects or having any new problems. Verified his pharmacy and his next appt in June 2021. Denies problems with constipation. Zuri Santos RN
== END | disposition home or self-care (01) ==
LOC: PNCL 08:31
PROVIDERS: ATTEND Anesthesiology
DX: M51.16 Intervertebral disc disorders with radiculopathy, lumbar region (principal); M47.26 Other spondylosis with radiculopathy, lumbar region; M48.061 Spinal stenosis, lumbar region without neurogenic claudication; M50.10 Cervical disc disorder with radiculopathy, unspecified cervical region; M48.02 Spinal stenosis, cervical region; F17.210 Nicotine dependence, cigarettes, uncomplicated; Z79.84 Long term (current) use of oral hypoglycemic drugs; Z79.899 Other long term (current) drug therapy; Z98.890 Other specified postprocedural states
CPT/HCPCS: G0463

== ENCOUNTER → 2021-06-21 | Outpatient (CLI) | payer BC ==
--- NOTE | 2021-06-21 14:10 | PDOC ---
Progress Note - Pain Clinic Date of Service: DOS: DATE: 06/21/21 TIME: 14:05 Diagnosis: Dx: Lumbar radiculopathy with lumbar spinal stenosis lumbar degenerative disc disease and lumbar spondylosis Cervical radiculopathy with cervical spinal stenosis History or Present Illness: HPI: 60-year-old male returns for follow-up status post medication management with hydrocodone. Patient also taking meloxicam reports he does fairly well with this in a very stable regimen of the medications with good reduction in pain by about 70% or better and without any significant side effects. Patient reports he continues to do well still using a motorized wheelchair for travel as he is not as ambulatory as he was but reports much better with sitting and laying down as opposed to standing and walking still getting up out of the chair or changing positions is quite painful in the low back and the bilateral lower extremities right essentially equal to left patient reports is a 5 on scale 10 is worse over the past week 3 on average to its least is a 5 today patient reports worse pain with weightbearing but no new motor or sensory deficits no bowel or bladder incontinence. Patient reports no significant side effects with the medication once again. Physical Exam: VS: Blood pressure is 134/75 pulse 101 respiration 16 temperature 9 7.8 F weight is 232 pounds PE: PHYSICAL EXAMINATION: GENERAL: The patient is awake, alert, oriented, appropriate, very pleasant in demeanor HEENT: Shows normocephalic, atraumatic. Extraocular movements are intact and symmetrical. NECK: Shows anterior throat supple without palpable lymphadenopathy noted. CHEST: Shows normal on inspection. Breath sounds are clear bilaterally, no rales or rhonchi auscultated. HEART: Shows S1, S2 clear. No murmurs auscultated. ABDOMEN: Soft, nontender, nondistended, obese. No palpable organomegaly is noted. BACK: Shows spine grossly in the midline. Normal-appearing cervical lordotic curvature. There is slightly increased thoracic kyphosis, some minor flattening of the lumbar lordotic curvature. Lumbar paraspinous muscles show symmetrical on inspection, on palpation shows some moderate tenderness diffusely throughout the upper, middle and lower distribution of the paraspinous muscles without specific trigger points, without radiation of pain. The patient has good rotational motion of the lumbar spine, both laterally as well as extension and flexion without significant difficulty. No tenderness over the spinous processes, sacrum or sacroiliac regions. EXTREMITIES: Lower extremities show deep tendon reflexes 1+ in the patellar and tendo calcaneus tendons. Motor exam is 4 on a scale of 5 with right dorsiflexion, extension, quadriceps and hamstring flexion and 4/5 on the left. Peripheral pulses are 1+ posterior tibial. No peripheral edema is noted bilaterally. Lower extremities are warm and dry. SKIN: Shows warm and dry, good turgor. No edema. No sores, rashes or bruising throughout. Procedure: Procedure: Options were discussed with the patient patient's old chart was reviewed his current medication regimen updated current review of systems updated today as well. We will refill patient's medication of hydrocodone 7.5 mg with instructions and side effects aware of discussed with medication. Patient has been on a very stable regimen of the medication has had appropriate K tracks reporting as well as appropriate urinalyses to date. We will make this a 1 month prescription. Patient to follow-up in approximately 1 month as scheduled. Patient will have her urinary drug screen today as routine screening. Medication Injected: Med Injected: None Condition at Discharge: Condition at Discharge: Condition at discharge is stable. JOSUÉ KEEN MD Jun 21, 2021 14:10
== END | disposition home or self-care (01) ==
LOC: PNCL 13:32
PROVIDERS: ATTEND Anesthesiology
DX: M51.16 Intervertebral disc disorders with radiculopathy, lumbar region (principal); M48.061 Spinal stenosis, lumbar region without neurogenic claudication; M47.26 Other spondylosis with radiculopathy, lumbar region; M48.02 Spinal stenosis, cervical region; F17.210 Nicotine dependence, cigarettes, uncomplicated; Z79.84 Long term (current) use of oral hypoglycemic drugs; Z79.899 Other long term (current) drug therapy
CPT/HCPCS: 99212; G0463

== ENCOUNTER → 2021-07-19 | Outpatient (CLI) | payer BC ==
--- NOTE | 2021-07-19 15:28 | NUR ---
Patient called for a refill denied any new medications, verfied name and date of , denies any new medical problems. Patient states no constipation, Verified pharmacy and appointment. [facility] ok. Chart given to Dr Ruiz.
--- NOTE | 2021-07-19 16:52 | PDOC ---
Progress Note - Pain Clinic Date of Service: DOS: DATE: 07/19/21 TIME: 16:49 Diagnosis: Dx: Lumbar radiculopathy with lumbar spinal stenosis lumbar degenerative disease and lumbar and lumbosacral spondylosis Cervical radiculopathy with cervical spinal stenosis History or Present Illness: HPI: Telemedicine visit today with patient's identity verified with full date of as well as full name total time spent 11 minutes 60-year-old male with request for refill of hydrocodone patient has had a very good regimen with the 7.5 mg without any side effects that controls his pain to about a 70% level most times with activity regulated. Patient reports no side effects once again has had appropriate K tracks portables appropriate urinalyses to date as well. Patient reports no new finding still significant pain in the low back mid back as well as the shoulders at times but fairly well controlled with medication regimen as stated. We will electronically prescribed patient's medication hydrocodone 7.5 mg instructions take 1 every 6 hours urine pain 120 dispensed for 30-day supply. Patient to follow-up in approximately 4 weeks as scheduled. Physical Exam: PE: JOSUÉ KEEN MD Jul 19, 2021 16:52
== END | disposition home or self-care (01) ==
LOC: PNCL 14:32
PROVIDERS: ATTEND Anesthesiology
DX: M51.16 Intervertebral disc disorders with radiculopathy, lumbar region (principal); M48.061 Spinal stenosis, lumbar region without neurogenic claudication; M47.27 Other spondylosis with radiculopathy, lumbosacral region; M48.02 Spinal stenosis, cervical region; F17.210 Nicotine dependence, cigarettes, uncomplicated; Z79.84 Long term (current) use of oral hypoglycemic drugs; Z79.899 Other long term (current) drug therapy; Z98.890 Other specified postprocedural states
CPT/HCPCS: 99212; G0463

== ENCOUNTER → 2021-08-17 | Outpatient (CLI) | payer BC ==
--- NOTE | 2021-08-17 13:34 | PDOC ---
Progress Note - Pain Clinic Date of Service: DOS: DATE: 08/17/21 TIME: 13:29 Diagnosis: Dx: Lumbar radiculopathy with lumbar spinal stenosis and lumbar degenerative disease lumbar spondylosis Cervical radiculopathy with cervical degenerative disease and cervical spinal stenosis History or Present Illness: HPI: 60-year-old male returns for follow-up status post medication management with hydrocodone 7.5 mg. Patient reports doing very well and has been on a very stable regimen with medication controlling his pain to about a 75% level at most times patient has been fairly inactive but is doing some increased walking at home he reports and trying to lose some weight patient reports that is still painful with his low back and legs but is fairly well controlled with the medication as he has been patient reports no new motor or sensory deficits no bowel or bladder incontinence no constipation no other side effects with medication. Patient has had appropriate K tracks reporting as well as appropriate urinalyses to date as well. Patient reports is better with sitting or laying down generally does not awaken her from sleep at night patient is using a wheelchair when he can well and is available and he has 1 with him today. Patient rates his pain as a 6 on scale 10 is worse over the past week for an average 3 distillation is a 4 today pain scribes aching and constant in the low back itself and occasionally in the right lower extremities with extended standing or walking. We discussed potential diagnostic studies with the patient as well as interventional treatments as he has had these in the past without significant improvement patient declines to pursue these and we will maintain his medical management status at this time. Physical Exam: VS: Blood pressure is 135/81 pulse 76 respirations are 18 temperature 98.0 F height is 6 foot 1 his weight is 232 pounds PE: PHYSICAL EXAMINATION: GENERAL: The patient is awake, alert, oriented, appropriate, very pleasant in demeanor HEENT: Shows normocephalic, atraumatic. Extraocular movements are intact and symmetrical. Oral cavity: Mucous membranes moist and pink. Dentition is intact. NECK: Shows anterior throat supple without palpable lymphadenopathy noted. Swallow reflex symmetrical. CHEST: Shows normal on inspection. Breath sounds are clear bilaterally, coarse but no rales or rhonchi. HEART: Shows S1, S2 clear. No murmurs auscultated. ABDOMEN: Soft, nontender, nondistended. No palpable organomegaly is noted. BACK: Shows spine grossly in the midline. Normal-appearing cervical lordotic curvature. There is increased thoracic kyphosis, some flattening of the lumbar lordotic curvature. Lumbar paraspinous muscles show symmetrical on inspection, on palpation shows some moderate tenderness diffusely throughout the upper, middle and lower distribution of the paraspinous muscles without specific trigger points, without radiation of pain. The patient has good rotational motion of the lumbar spine, both laterally as well as extension and flexion with only moderate pain with extension not with forward flexion or right and left lateral rotation. No tenderness over the spinous processes, sacrum or sacroiliac regions. EXTREMITIES: Lower extremities show deep tendon reflexes 1+ in the patellar and tendo calcaneus tendons. Motor exam is 4 on a scale of 5 with right dorsiflexion, extension, quadriceps and hamstring flexion and 4/5 on the left. Peripheral pulses are 1+ posterior tibial. No peripheral edema is noted bilaterally. Lower extremities are warm and dry. SKIN: Shows warm and dry, good turgor. No edema. No sores, rashes or bruising throughout. Procedure: Procedure: Options were discussed with patient. Patient chart was reviewed his current medication regimen updated current review of systems updated today as well. We will refill patient's hydrocodone 7.5 mg with instructions and side effects beware discussed. Once again patient is had appropriate K tracks report as well as appropriate urinalysis to date and we will make this a 30-day supply. Patient to follow-up in 30 days as scheduled. Medication Injected: Med Injected: None Condition at Discharge: Condition at Discharge: Condition at discharge is stable. JOSUÉ KEEN MD Aug 17, 2021 13:34
== END | disposition home or self-care (01) ==
LOC: PNCL 12:51
PROVIDERS: ATTEND Anesthesiology
DX: M51.16 Intervertebral disc disorders with radiculopathy, lumbar region (principal); M48.061 Spinal stenosis, lumbar region without neurogenic claudication; M47.26 Other spondylosis with radiculopathy, lumbar region; M50.10 Cervical disc disorder with radiculopathy, unspecified cervical region; M48.02 Spinal stenosis, cervical region; F17.210 Nicotine dependence, cigarettes, uncomplicated; Z79.84 Long term (current) use of oral hypoglycemic drugs; Z79.899 Other long term (current) drug therapy
CPT/HCPCS: 99212; G0463

== ENCOUNTER → 2021-09-14 | Outpatient (CLI) | payer BC ==
--- NOTE | 2021-09-14 09:33 | NUR ---
Patient called requesting a medication refill Verified Name , Pharmacy, allergies, medications and next appointment.. Patient denies constipation or problems urinating, or new medical problems. [facility] is correct. patient states his pain is around a 4-5. call transferred to Dr Ruiz.
--- NOTE | 2021-09-14 09:50 | PDOC ---
Progress Note - Pain Clinic Date of Service: DOS: DATE: 09/14/21 TIME: 09:48 Diagnosis: Dx: Lumbar radiculopathy with lumbar degenerative disease and lumbar spinal stenosis with lumbar and lumbosacral spondylosis Cervical radiculopathy with cervical degenerative disc disease cervical spinal stenosis History or Present Illness: HPI: Telemedicine visit today with patient consent with full identity verified with date of as well as full name, total time spent 14 minutes. 60-year-old male via telemedicine visit today requesting refill of hydrocodone 7.5 mg. Patient has been through medication management as well as interventional treatment in the past with only limited improvement in his medication management has done very well and has been on very stable regimen of hydrocodone 7.5 mg up to 4 tablets daily. Patient reports no side effects with the medication still reports pain reduction about 70 to 75% overall still some pain in the back and the lower extremities as well as the neck and shoulders but very well-tolerated with the current medications. We encouraged him to increase his activity as well discussed weight loss techniques on his last visit as well although patient reports he is not persisted with these activities currently has become more painful with some recent colder weather. Patient strongly encouraged to maintain exercise level as well as watching her diet intake as previously described. Patient voices understanding. Patient has had appropriate K tracks reporting as well as appropriate urinalyses as well to date. We will refill patient's medication as he is on a very stable regimen with the hydrocodone for 30-day supply. Patient is given instructions well side effects beware with medication. Patient will follow up in approximate 30 days as scheduled. Physical Exam: PE: JOSUÉ KEEN MD Sep 14, 2021 09:50
--- NOTE | 2021-10-14 12:36 | FMN ---
PT PROBLEMS Addendum for visit of September 14, 2021 Telemedicine visit performed using telephone voice only JOSUÉ KEEN MD Oct 14, 2021 12:36
== END | disposition home or self-care (01) ==
LOC: PNCL 09:16
PROVIDERS: ATTEND Anesthesiology
DX: M51.16 Intervertebral disc disorders with radiculopathy, lumbar region (principal); M48.061 Spinal stenosis, lumbar region without neurogenic claudication; M47.27 Other spondylosis with radiculopathy, lumbosacral region; M50.10 Cervical disc disorder with radiculopathy, unspecified cervical region; M48.02 Spinal stenosis, cervical region; Z79.84 Long term (current) use of oral hypoglycemic drugs; Z79.899 Other long term (current) drug therapy; Z98.890 Other specified postprocedural states
CPT/HCPCS: 99212; G0463

== ENCOUNTER → 2021-10-12 | Outpatient (CLI) | payer BC ==
--- NOTE | 2021-10-12 14:01 | PDOC ---
Progress Note - Pain Clinic Date of Service: DOS: DATE: 10/12/21 TIME: 13:57 Diagnosis: Dx: Lumbar radiculopathy with lumbar degenerative disc disease History or Present Illness: HPI: 66-year-old female returns with complaints of low back and bilateral lower extremity pain posterior gluteus posterior lateral thigh rating to the lateral anterior thighs and anterior medial lower legs patient reports pain is worse with walking standing changing positions better with sitting or resting. Patient reports no new motor or sensory deficits no bowel or bladder incontinence currently. Patient reports pain is still radiating to the bilateral lower extremities and across the low back somewhat more on the left than the right but present bilaterally. Patient reports is awakening from sleep at least once or twice a night but she has a new sleeping medication that she is taking which helps her sleep fairly significantly. We discussed patient's MRI scan with her once again and she would like to proceed with lumbar epidural steroid injection on her visit today. Patient reports no bowel or bladder incontinence currently. Physical Exam: VS: Blood pressure is 149/96 pulse 90 respirations 18 temperature 98.5 09 5 feet 6 inches weight is 195 pounds. PE: PHYSICAL EXAMINATION: GENERAL: The patient is awake, alert, oriented, appropriate, very pleasant in demeanor HEENT: Shows normocephalic, atraumatic. Extraocular movements are intact and symmetrical. Oral cavity: Mucous membranes moist and pink. Dentition is intact. NECK: Shows anterior throat supple without palpable lymphadenopathy noted. Swallow reflex symmetrical. CHEST: Shows normal on inspection. Breath sounds are clear bilaterally, no rales rhonchi or wheezes auscultated. HEART: Shows S1, S2 clear. No murmurs auscultated. ABDOMEN: Soft, nontender, nondistended. No palpable organomegaly is noted. BACK: Shows spine grossly in the midline. Normal-appearing cervical lordotic curvature. There is mildly increased thoracic kyphosis, some flattening of the lumbar lordotic curvature. Lumbar paraspinous muscles show symmetrical on inspection, on palpation shows some moderate tenderness diffusely throughout the upper, middle and lower distribution of the paraspinous muscles without specific trigger points, without radiation of pain. The patient has good rotational motion of the lumbar spine, both laterally as well as extension and flexion without significant difficulty. No tenderness over the spinous processes, sacrum or sacroiliac regions. EXTREMITIES: Lower extremities show deep tendon reflexes 1+ in the patellar and tendo calcaneus tendons. Motor exam is 5 on a scale of 5 with right dorsiflexion, extension, quadriceps and hamstring flexion and 5/5 on the left. Peripheral pulses are 1+ posterior tibial. No peripheral edema is noted bilaterally. Lower extremities are warm and dry. SKIN: Shows warm and dry, good turgor. No edema. No sores, rashes or bruising throughout. Procedure: Procedure: Risks were discussed including but not limited to: Bleeding, infection, possibility of epidural hematoma and subsequent neurological compromise, dural puncture, headaches, spinal cord and/or nerve damage, side effects of steroid medication, and poor results regarding pain control. Patient understands and wished to proceed.Options discussed with the patient. Patient is alert with use of current medication regimen updated current review of systems updated today as well. We will proceed with a lumbar epidural steroid injection today with fluoroscopic guidance. Risks were discussed including but not limited to: Bleeding, infection, possibility of epidural hematoma and subsequent neurological compromise, dural puncture, headaches, spinal cord and/or nerve damage, side effects of steroid medication and poor results regarding pain control. Patient understands and wished to proceed. Patient will return to clinic in approximately 2 weeks for follow-up, was counseled as to return appointment, activity level, and side effect to be aware of. Medication Injected: Med Injected: Procedure is lumbar epidural steroid injection under local anesthetic using sterile prep and drape at the L4-5 level using C-arm fluoroscopic guidance in both AP and lateral views medications injected is 20 mg dexamethasone +10mL preservative-free normal saline and 2 mL contrast- condition at discharge is stable patient tolerated procedure well had no complications. Condition at Discharge: Condition at Discharge: Condition at discharge is stable, patient tolerated the procedure well and had no complications. JOSUÉ KEEN MD Oct 12, 2021 14:00
--- NOTE | 2021-10-12 14:01 | PDOC4 ---
Procedure Note: ICD 10 Code: ICD 10 Code: M54.16 M51.36 Procedure Note: Patient was consented for lumbar epidural steroid injection with fluoroscopic guidance. Risks were discussed including but not limited to: Bleeding, infection, possibility of epidural hematoma and subsequent neurological compromise, dural puncture, headaches, spinal cord and/or nerve damage, side effects of steroid medication, and poor results regarding pain control. Patient understands and wished to proceed. Procedure is lumbar epidural steroid injection under local anesthetic using sterile prep and drape at the L4-5 level using C-arm fluoroscopic guidance in both AP and lateral views medications injected is 20 mg dexamethasone +10mL preservative-free normal saline and 2 mL contrast- condition at discharge is stable patient tolerated procedure well had no complications. JOSUÉ KEEN MD Oct 12, 2021 14:01
--- NOTE | 2021-10-12 14:16 | FMN ---
PT PROBLEMS Correction to dictation on incorrect chart for patient Analy Romero, was incorrectly dictated on patients Ramon Capone's chart. JOSUÉ KEEN MD Oct 12, 2021 14:16
--- NOTE | 2021-10-12 14:26 | PDOC ---
Progress Note - Pain Clinic Date of Service: DOS: DATE: 10/12/21 TIME: 14:16 Diagnosis: Dx: Lumbar degenerative disc disease lumbar spinal stenosis lumbar radiculopathy and lumbar spondylosis Cervical radiculopathy with cervical degenerative disc disease History or Present Illness: HPI: 60-year-old male returns for follow-up status post medication management hydrocodone 7.5 mg. Patient reports has been doing very well with the medication and try to wean himself down but was unable to do so significantly he got down to 2 to 3 tablets a day the pain became excruciating we went back up to 4day with much better relief and reports about a 75% improvement overall where he is usually at his baseline patient reports he was having difficulty sleeping have difficulty walking standing changing positions using a wheelchair still for most of his ambulatory needs and has been with him today as well. Patient rep orts is better with laying down or sitting does not disturb him sleep most nights patient rates the pain is 8 on scale 10 is worse over the past week 6 on average 4 to [place] is a 6 today describes aching dull alternating with sharp and tight shooting and stabbing pain in the low back and the lower extremities with activity. Again better with sitting no motor or sensory deficits no bowel or bladder incontinence. Patient has had appropriate K tracks report as well as appropriate urinalyses to date as well. Physical Exam: VS: Blood pressure is 145/94 pulse 94 respirations 18 temperature is 98.6 F weight is 233 pounds. PE: PHYSICAL EXAMINATION: GENERAL: The patient is awake, alert, oriented, appropriate, very pleasant demeanor HEENT: Shows normocephalic, atraumatic. Extraocular movements are intact and symmetrical. Oral cavity: Mucous membranes moist and pink. Dentition is intact. NECK: Shows anterior throat supple without palpable lymphadenopathy noted. Swallow reflex symmetrical. CHEST: Shows normal on inspection. Breath sounds are clear bilaterally. HEART: Shows S1, S2 clear. No murmurs auscultated. ABDOMEN: Soft, nontender, nondistended. No palpable organomegaly is noted. No rebound or guarding demonstrated. BACK: Shows spine grossly in the midline. Normal-appearing cervical lordotic curvature. There is slightly increased thoracic kyphosis, some minor flattening of the lumbar lordotic curvature. Lumbar paraspinous muscles show symmetrical on inspection, on palpation shows some moderate tenderness diffusely throughout the upper, middle and lower distribution of the paraspinous muscles without specific trigger points, without radiation of pain. The patient has good rotational motion of the lumbar spine, both laterally as well as extension and flexion without significant difficulty. No tenderness over the spinous pr ocesses, sacrum or sacroiliac regions. EXTREMITIES: Lower extremities show deep tendon reflexes 1+ in the patellar and tendo calcaneus tendons. Motor exam is 4 on a scale of 5 with right dorsiflexion, extension, quadriceps and hamstring flexion and 4/5 on the left. Peripheral pulses are 1+ posterior tibial. No peripheral edema is noted bilaterally. Lower extremities are warm and dry to touch, equal in color and appearance. SKIN: Shows warm and dry, good turgor. No edema. No sores, rashes or bruising throughout. Procedure: Procedure: Options were discussed with the patient. Patient's old chart reviews his current medication regimen updated current review of systems updated today as well. We will refill patient's hydrocodone at 7.5 mg with instructions side effects aware discussed with the patient. Patient has had appropriate K tracks report as well as appropriate urinalyses to date as well will make a follow-up for approximately 30 days. Medication Injected: Med Injected: None Condition at Discharge: Condition at Discharge: Condition at discharge is stable. JOSUÉ KEEN MD Oct 12, 2021 14:26
== END | disposition home or self-care (01) ==
LOC: PNCL 13:17
PROVIDERS: ATTEND Anesthesiology
DX: M51.16 Intervertebral disc disorders with radiculopathy, lumbar region (principal); M48.061 Spinal stenosis, lumbar region without neurogenic claudication; M47.26 Other spondylosis with radiculopathy, lumbar region; M50.10 Cervical disc disorder with radiculopathy, unspecified cervical region; F17.210 Nicotine dependence, cigarettes, uncomplicated; Z79.899 Other long term (current) drug therapy
CPT/HCPCS: 62323; 99212; G0463

== ENCOUNTER → 2021-11-09 | Outpatient (CLI) | payer BC ==
--- NOTE | 2021-11-09 08:59 | NUR ---
Pt. called clinic requesting a refill on his hydrocodone for his chronic pain. States pain level is 6/10 on average. Pt. denies new health issues, side effects from meds, or constipation. Pt.s pharmacy verified along with next clinic appt. Dr. Ruiz will speak with pt. prior to E-scribing pts med. S. Danielle AGUILERA
--- NOTE | 2021-11-09 12:27 | PDOC ---
Progress Note - Pain Clinic Date of Service: DOS: DATE: 11/09/21 TIME: 12:25 Diagnosis: Dx: Lumbar radiculopathy with lumbar degenerative disc disease and lumbar spinal stenosis with lumbar spondylosis Cervical radiculopathy with cervical degenerative disc disease and cervical spinal stenosis History or Present Illness: HPI: Telemedicine visit today patient Loli verified with full date of as well as full name, total time spent 12 minutes, telephone voice only. 60-year-old male via telemedicine conference today requesting a refill of hydrocodone 7.5 mg. Patient has been on a very stable regimen with the medication for an extended period of time without any significant side effects. Patient reports still doing well with the medication controlling his pain to a very tolerable level for most of his daily activities which he reports are not very strenuous and he is more or less sedentary but does know that certain activities will exacerbate the pain is able to care for them with the medication. Patient reports approximately 70 to 75% improvement with the medication alone. Patient reports no side effects with medication once again and has had appropriate K tracks report as well as appropriate urinalyses to date. Options were discussed with the patient, we we will refill patient's medication via electronic prescription hydrocodone 7.5 mg number dispensed 120 for 30-day supply. Patient will follow up in approximate 30 days as scheduled. Physical Exam: PE: JOSUÉ KEEN MD Nov 09, 2021 12:27
== END | disposition home or self-care (01) ==
LOC: PNCL 10:13
PROVIDERS: ATTEND Anesthesiology
DX: M51.16 Intervertebral disc disorders with radiculopathy, lumbar region (principal); M48.061 Spinal stenosis, lumbar region without neurogenic claudication; M47.26 Other spondylosis with radiculopathy, lumbar region; M50.10 Cervical disc disorder with radiculopathy, unspecified cervical region; M48.02 Spinal stenosis, cervical region; F17.210 Nicotine dependence, cigarettes, uncomplicated; Z79.899 Other long term (current) drug therapy
CPT/HCPCS: 99212; G0463

== ENCOUNTER → 2021-12-07 | Outpatient (CLI) | payer BC ==
--- NOTE | 2021-12-07 13:41 | PDOC ---
Progress Note - Pain Clinic Date of Service: DOS: DATE: 12/07/21 TIME: 13:38 Diagnosis: Dx: Lumbar radiculopathy with lumbar degenerative disease lumbar spinal stenosis and lumbar spondylosis Cervical radiculopathy with cervical degenerative disease and cervical spinal stenosis History or Present Illness: HPI: 60-year-old male returns for follow-up status post medication management with hydrocodone 7.5 mg. Patient reports he is doing very well has been on very stable regimen reports still significant pain in the low back but patient is able to avoid activities that might exacerbate the pain very effectively and reports he is fairly sedentary currently. Patient reports pain is a 6 on scale 10 is worse over the past week 3 on average 2 to [place] is a 3 today. Patient reports he is generally using a wheelchair which he has with him today for mobility. Patient describes the pain is aching and constant in the back we will try to wean him down on his hydrocodone in the past but his pain was significant and we are unable to do that successfully. We did discuss this in some detail today that he wishes to decrease the amount or wean himself down or off we will help him with this but he is not ready to do this currently. Patient reports the pain is still significant with standing walking weightbearing and transfer position but better with sitting or laying down generally does not awaken him from sleep at night. Patient reports no motor or sensory deficits no side effects with medication overall approximately a 75 to 80% improvement with the medications again without side effects. Patient has had appropriate K tracks report as well as appropriate urinalyses as well to date. Physical Exam: VS: Blood pressure is 136/71 pulse 88 respirations 18 temperature 98.5 F height 6 feet 1 inch weight is 235 pounds. PE: PHYSICAL EXAMINATION: GENERAL: The patient is awake, alert, oriented, appropriate, very pleasant in demeanor HEENT: Shows normocephalic, atraumatic. Extraocular movements are intact and symmetrical. Oral cavity: Mucous membranes moist and pink. NECK: Shows anterior throat supple without palpable lymphadenopathy noted. Swallow reflex symmetrical. CHEST: Shows normal on inspection. Breath sounds are clear bilaterally, no rales rhonchi or wheezes auscultated. HEART: Shows S1, S2 clear. No murmurs auscultated. ABDOMEN: Soft, nontender, nondistended. No palpable organomegaly is noted. BACK: Shows spine grossly in the midline. Normal-appearing cervical lordotic curvature. There is slightly increased thoracic kyphosis, some minor flattening of the lumbar lordotic curvature. Lumbar paraspinous muscles show symmetrical on inspection, on palpation shows some moderate tenderness diffusely throughout the upper, middle and lower distribution of the paraspinous muscles, without specific trigger points, without radiation of pain. The patient has good rot ational motion of the lumbar spine, both laterally as well as extension and flexion without significant difficulty. EXTREMITIES: Lower extremities show deep tendon reflexes 1+ to in the patellar and tendo calcaneus tendons. Motor exam is 4 on a scale of 5 with right dorsiflexion, extension, quadriceps and hamstring flexion and 4/5 on the left. Peripheral pulses are 1+ posterior tibial. No peripheral edema is noted bilaterally. Lower extremities are warm and dry. SKIN: Shows warm and dry, good turgor. No edema. No sores, rashes or bruising throughout. Procedure: Procedure: Options discussed with the patient. Patient's old chart was reviewed his current medication regimen updated current review of systems updated today as well. We will refill patient's medication hydrocodone 7.5 mg. Patient was given instructions well side effects aware with the medication. Patient has had appropriate K tracks report as well as appropriate urinalyses to date and we will make is a 30day supply. Patient will follow up in approximate 30 days as scheduled. Medication Injected: Med Injected: None Condition at Discharge: Condition at Discharge: Condition at discharge is stable. JOSUÉ KEEN MD Dec 07, 2021 13:41
== END | disposition home or self-care (01) ==
LOC: PNCL 13:00
PROVIDERS: ATTEND Anesthesiology
DX: M51.16 Intervertebral disc disorders with radiculopathy, lumbar region (principal); M48.061 Spinal stenosis, lumbar region without neurogenic claudication; M47.26 Other spondylosis with radiculopathy, lumbar region; M50.10 Cervical disc disorder with radiculopathy, unspecified cervical region; M48.02 Spinal stenosis, cervical region; F17.210 Nicotine dependence, cigarettes, uncomplicated; Z79.84 Long term (current) use of oral hypoglycemic drugs; Z79.899 Other long term (current) drug therapy
CPT/HCPCS: 99212; G0463

== ENCOUNTER → 2022-01-03 | Outpatient (CLI) | payer BC ==
--- NOTE | 2022-01-03 16:10 | PDOC ---
Progress Note - Pain Clinic Date of Service: DOS: DATE: 01/03/22 TIME: 16:08 Diagnosis: Dx: Lumbar radiculopathy with lumbar degenerative disease lumbar spinal stenosis lumbar spondylosis Cervical radiculopathy with cervical degenerative disease and cervical spinal stenosis History or Present Illness: HPI: Telemedicine visit today with patient's identity verified with full name as well as full date of , total time spent 12 minutes, telephone voice only. 61-year-old male via telemedicine visit today requesting refill medication of hydrocodone 7.5 mg. Patient reports he is doing very well has been on very stable regimen with the medication with good reduction in pain about 80% without any side effects. Patient reports he is getting ready to do some traveling with his family later this week has had some increased pain in the low back recently with some rainy weather but otherwise feels like he is doing fairly well and is pleased with his level of comfort with his medication. Patient reports no new deficits and again no new side effects as noted. Patient is a 3K tracks with appropriate urinalyses to date as well. We discussed options, and we will electronically prescribe hydrocodone 7.5mg to take every 6 hours as needed pain number dispense 120. Patient was given instructions well side effects beware of with the medication. Patient will follow up in approximate 30 days as scheduled. Physical Exam: PE: JOSUÉ KEEN MD January 03, 2022 16:10
== END | disposition home or self-care (01) ==
LOC: PNCL 15:11
PROVIDERS: ATTEND Anesthesiology
DX: M51.16 Intervertebral disc disorders with radiculopathy, lumbar region (principal); M48.061 Spinal stenosis, lumbar region without neurogenic claudication; M47.26 Other spondylosis with radiculopathy, lumbar region; M50.10 Cervical disc disorder with radiculopathy, unspecified cervical region; M48.02 Spinal stenosis, cervical region; F17.210 Nicotine dependence, cigarettes, uncomplicated; Z79.84 Long term (current) use of oral hypoglycemic drugs; Z79.899 Other long term (current) drug therapy
CPT/HCPCS: 99212; G0463